=== PATIENT | female | born 1980 | race African-American/Black ===

== ENCOUNTER → 2020-01-12 12:23 | Outpatient (CLI) | payer OTHER, SELFPAY ==
--- NOTE | ~2020-01-12 | US_ITS ---
EXAMINATION: US thyroid EXAM DATE: 01/12/2020 12:43 INDICATION: Follow-up thyroid nodule. TECHNIQUE: Multiple grayscale and Doppler images of the thyroid were obtained (by a technologist who performed the scan) and subsequently reviewed. Individual nodules and recommendations may be reporte d in accordance with TI-RADS system as designated by the 2017 ACR White Paper TI-RADS committee. The re is no prior study for comparison at our institution FINDINGS: Right thyroid lobe measures 5.4 x 2.3 x 1.7 cm, the left measuring 4.8 x 1.9 x 1.7 cm. Mildly heterog eneous thyroid echogenicity with expected amount of vascularity. These dimensions are mildly enlarged . In the left side of the isthmus there is nodule measuring 6 x 5 x 6 millimeters, solid (2 points), hypoechoic (2 points), wider than tall, smooth margin, without echogenic foci, category TR4 for this nodule. IMPRESSION: 1. Small left thyroid isthmus nodule not likely clinically significant. 2. Mild thyromegaly. Reviewed, dictated and finalized at location B.
== END ==
DX: E05.90 Thyrotoxicosis, unspecified without thyrotoxic crisis or storm (principal); E04.9 Nontoxic goiter, unspecified
CPT/HCPCS: 76536

== ENCOUNTER → 2020-07-01 16:33 | Outpatient (CLI) | payer OTHER, SELFPAY ==
--- NOTE | ~2020-07-01 | XR_ITS ---
EXAMINATION: XR knee LT min 4V DATE: 07/01/2020 16:52 INDICATION: Left knee pain. TECHNIQUE: 4 views of left knee were obtained. COMPARISON: None. FINDINGS: Bone alignment is normal. No fracture. There is mild osteoarthritis of medial and patellofe moral compartments. No knee joint effusion. IMPRESSION: 1. Mild left knee osteoarthritis. Reviewed, dictated and finalized at location A. ETY SAW OPERATOR
== END ==
PROVIDERS: Visit Provider Physician Assistant
DX: M17.12 Unilateral primary osteoarthritis, left knee (principal)
CPT/HCPCS: 73564

== ENCOUNTER 2020-07-22 08:52 | Outpatient (CLI) | payer OTHER, SELFPAY ==
--- NOTE | ~2020-07-22 | MMUS_ITS ---
EXAMINATION: MM diagnostic josé miguel RT w nataliya, US breast RT limited HISTORY: Follow-up for probably benign right breast mass TECHNIQUE: Craniocaudal, mediolateral, and mediolateral oblique 3-D tomosynthesis images of the right breast were performed and synthetic 2-D images were generated. CAD analysis was submitted and interp reted. High resolution limited right breast ultrasound was performed. COMPARISON: 10/21/2019, 09/23/2019 BREAST PARENCHYMAL COMPOSITION: There are scattered areas of fibroglandular density. FINDINGS: MAMMOGRAPHIC FINDINGS: There is a stable 6 mm oval, equal density, circumscribed mass in the posterior third of the lower-ou ter breast at the 8:00 location 13 cm from the nipple. There has been no suspicious interval change. No suspicious calcification or architectural distortion are identified. ULTRASOUND: There is a stable 6 mm x 3 mm oval, circumscribed, parallel, complex cystic and solid mass with no po sterior features or internal vascularity at the 8:00 location 12 cm from the nipple. IMPRESSION: 1. Stable, probably benign right breast mass. 2. Recommend 6 month follow-up right diagnostic mammogram and ultrasound. BI-RADS category 3, probably benign findings. Reviewed, dictated and finalized at location A. IMPRESSION: 1. Stable, probably benign right breast mass. 2. Recommend 6 month follow-up right diagnostic mammogram and ultrasound. BI-RADS category 3, probably benign findings.
== END 2020-07-22 08:53 ==
LOC: MICIMG 08:53
PROVIDERS: Visit Provider Physician Assistant
DX: N63.10 Unspecified lump in the right breast, unspecified quadrant (principal)
CPT/HCPCS: 76642; 77061; 77065; G0279

== ENCOUNTER 2020-08-30 13:50 | Outpatient (CLI) | payer OTHER, SELFPAY ==
--- NOTE | ~2020-08-30 | US_ITS ---
EXAMINATION: US thyroid DATE: 08/30/2020 14:16 INDICATION: Nontoxic goiter. TECHNIQUE: Multiple ultrasound images of the thyroid were obtained. COMPARISON: Ultrasound 01/12/2020 FINDINGS: The right thyroid lobe measures 5.1 x 1.9 x 1.8 cm. The left thyroid lobe measures 5.1 x 1.8 x 1.5 c m. There is normal echotexture and echogenicity throughout the thyroid gland. In the thyroid isthmus , there is a 5 mm solid, hypoechoic, dklel-wdyt-sumt nodule with smooth margin without echogenic foci (TI-RADS TR4). Normal vascular flow is present. IMPRESSION: 1. Stable thyroid nodule, likely not clinically significant. No follow-up is needed. Reviewed, dictated and finalized at location B. IMPRESSION: 1. Stable thyroid nodule, likely not clinically significant. No follow-up is ne eded.
== END 2020-08-30 13:51 | disposition home or self-care (01) ==
PROVIDERS: PCP Physician Assistant; Visit Provider Internal Medicine Endocrinology, Diabetes & Metabolism
DX: E04.9 Nontoxic goiter, unspecified (principal)
CPT/HCPCS: 76536

== ENCOUNTER 2020-09-24 07:52 | Emergency (ER) | payer OTHER, SELFPAY ==
[2020-09-24] VITALS (26 sets, daily range): BP systolic 114–157; BP diastolic 68–94; PULSE 69–87; RESP 10–25; TEMP 36.4; O2SAT 97–100
--- NOTE | ~2020-09-24 | XR_ITS ---
EXAMINATION: XR chest 1V portable EXAM DATE: 09/24/2020 08:26 INDICATION: Facial swelling after bug bite on thumb last night. TECHNIQUE: Portable AP frontal chest x-ray was obtained. There is no prior study for comparison. FINDINGS: The lungs are clear. There are no pleural effusions. Cardiomediastinal silhouette is norm al. There is no pneumothorax suspected. The bones and soft tissues are unremarkable. IMPRESSION: No acute cardiopulmonary findings. Reviewed, dictated and finalized at location A.
--- NOTE | ~2020-09-24 | CT_ITS ---
EXAMINATION: CTA chest PE protocol EXAM DATE: 09/24/2020 09:25 INDICATION: Chest pain, elevated d dimer. TECHNIQUE: Spiral CTA of the chest (pulmonary arteries) was performed with 100 cc Omnipaque 350 intr avenous contrast injection. Images were acquired during the pulmonary arterial phase. Coronal maxi mum intensity projection 3D-reconstructions were created by the technologist on dedicated workstation . Axial, coronal and sagittal reformatted images were reviewed. The dose-length product (DLP) for t his examination was 892.33 mGy-cm. The exposure was tailored according to patient size (auto mA exp osure control), and iterative reconstruction (ASIR) was used as additional dose reduction technique. There is no prior study for comparison. FINDINGS: There are no pulmonary emboli in the 1st through 3rd order (central and interlobar) pulmon rachael arteries. Some loss of attenuation in the segmental pulmonary arteries due to respiratory motion , but no intraluminal filling defects suspected. No thoracic aortic dissection. The lungs are arvin r. There are no pleural or pericardial effusions. Tracheobronchial tree is patent. There is no mediastinal, hilar or axillary lymphadenopathy. There is no pneumothorax. Heart normal in size. No evidence of coronary arterial calcification. Upper abdomen is unremarkable. There is thoracic spondylosis without osteoblastic or osteolytic lesions identified. IMPRESSION: No pulmonary emboli or acute findings. Reviewed, dictated and finalized at location A.
--- NOTE | 2020-09-24 08:08 | ECG_ITS ---
Measurements Intervals [place] Rate: 79 P: 70 NM: 146 QRS: 0 QRSD: 93 T: 1 QT: 378 QTc: 435 Interpretive Statements SINUS RHYTHM POSSIBLE LEFT VENTRICULAR HYPERTROPHY BORDERLINE T WAVE ABNORMALITY- INFERIOR LEADS BASELINE ARTIFACT- I, III, AVR, AVL BORDERLINE ECG Electronically Signed On 09-24-2020 9:59:24 CDT by Miguel Keen D.O.
--- NOTE | 2020-09-24 08:16 | ED.SKABFB ---
HPI - Skin/Abscess/Foreign Bdy General Chief complaint: Skin/Abscess/Foreign Body Stated complaint: bite/hives Time Seen by Provider: 09/24/20 07:58 Source: patient and RN notes reviewed Mode of arrival: ambulatory Limitations: no limitations History of Present Illness HPI narrative: This is a 40 year old female who presents for evaluation of an allergic reaction. She states last night she felt something bite her on her right thumb. Afterwards she developed hives and chest pain. She took benadryl last night and her symptoms improved. She woke up this morning with hives again, chest pain and right upper lip swelling. She denies sorethroat or hoarseness. She reports nonradiating midsternal chest pain. She denies cough or chills. She reports an allergy to bees. She is unsure if she developed hives with bee stings. She reports 1 week ago she started fertility pills. Related Data Home Medications Medication Instructions Recorded Confirmed cholecalciferol (vitamin D3) 10 10 mcg PO DAILY 05/24/20 08/15/20 mcg (400 unit) capsule coenzyme Q10 10 mg capsule 10 mg PO ONCE 05/24/20 08/15/20 levocetirizine 5 mg tablet 5 mg PO DAILY 05/24/20 08/15/20 Allergies Allergy/AdvReac Type Severity Reaction Status Date / Time Penicillins Allergy Unknown vomitting,h Verified 09/24/20 09:11 ngoc cefaclor [From Ceclor] AdvReac Severe Swelling Verified 09/24/20 09:11 of Lip/Tongue/Throat,hives Review of Systems Review of Systems: All systems reviewed & are unremarkable except as noted in HPI and below PMFSH Past Medical History Medical History Back pain Thyroid disease Ulcers of both great toes Surgical History Surgical History History of cryosurgery History of tonsillectomy Family History Family History Other Asthma Back pain COPD (chronic obstructive pulmonary disease) Cerebrovascular accident Diabetes mellitus Fibromyalgia H/O: HTN (hypertension) Heart disease IBS (irritable bowel syndrome) Thyroid disease Social History Social History (Updated 07/26/20 @ 15:34 by Rupali Maloney, RT(R)) Smoking status: Never smoker Second hand tobacco smoke exposure: No Alcohol intake: current Substance use: never Substance use type: does not use Gender identity (if verbalized by the patient): Female Exam Const: General: no acute distress and alert Orientation/consciousness: patient oriented x3 HENMT: Mouth: Yes moist mucous membranes Teeth and gingiva: dentition normal Throat: uvula midline Other: mild right upper lip swelling Eyes: EOM: EOMs intact bilaterally Resp: Effort & Inspection: normal respiratory effort and no retractions Auscultation: clear to auscultation bilaterally Cardio: Rate: regular rate Rhythm: regular rhythm GI: GI Palp: No Soft to palpation, No Tenderness to palpation present (GI) and No Guarding due to palpation present (GI) Auscultation: normal bowel sounds Skin: Other: right forearm hives Neuro: General: patient oriented x3, moves all extremities and CN's II-XI intact bilaterally Course Reevaluation(s) Reevaluation #1: Patient appears to have resolution in hives. Lip swelling has improved. She is no distress. I discussed discharge plan. Date: 09/24/20 Time: 11:11 Vital Signs Vital signs: Vital Signs Temperature 97.5 F L 09/24/20 08:08 Pulse Rate 83 09/24/20 08:08 Respiratory Rate 16 09/24/20 08:08 Blood Pressure 135/94 H 09/24/20 08:08 Pulse Oximetry 97 09/24/20 08:08 Temperature 97.5 F L 09/24/20 08:08 Pulse Rate 87 09/24/20 11:50 Respiratory Rate 18 09/24/20 11:50 Blood Pressure 117/68 09/24/20 11:50 Pulse Oximetry 100 09/24/20 11:50 MDM - Skin/Abscess/Foreign Bdy Lab Data Attestation: I reviewed the patient's l
[2020-09-24] MEDS: methylPREDNISolone SOD SUCC 125 MG VIAL IV PUSH (08:21)
[2020-09-24] MEDS: diphenhydrAMINE HCl INJ 50 MG/ML VIAL IV PUSH (08:21)
[2020-09-24] MEDS: FAMOTIDINE 20 MG/2 ML VIAL IV PUSH (08:21)
[2020-09-24 08:24] LABS: Eosinophils Absolute Auto 0.1 K/mm3 (0-0.3); Eosinophils Percent Auto 0.7 % (0-4.4); Hematocrit 41.5 % (37.0-47.0); Hemoglobin 12.9 g/dL (12.0-15.0); Immature Granulocyte Absolute 0.02 K/mm3 (0.00-0.031); Immature Granulocyte Percent A 0.3 % (0-0.5); Lymphocytes Absolute Auto 2.42 K/mm3 (0.9-3.2); Lymphocytes Percent Auto 33.8 % (18.3-44.2); Mean Corpuscular HGB Conc 31.1 g/dl (32-36); Mean Corpuscular Hemoglobin 24.2 pg (26-34); Mean Platelet Volume 10.6 fl (7.4-10.4); Monocytes Absolute Auto 0.4 K/mm3 (0.1-0.6); Monocytes Percent Auto 5.6 % (2.6-8.5); Neutrophils Absolute Auto 4.3 K/mm3 (1.3-6.7); Neutrophils Percent Auto 59.6 % (45.5-73.1); Platelet Count Result 369 k/mm3 (150-375); Red Blood Count 5.32 M/mm3 (4.2-5.4); Red Cell Distribution Width 17.6 % (11.5-14.5); White Blood Count 7.2 K/mm3 (4.5-10.0)
[2020-09-24 08:34] LABS: INR 0.9; Prothrombin Time 12.7 Seconds (11.1-14.7)
[2020-09-24 08:35] LABS: Partial Thromboplastin Time 28.6 SECONDS (22.3-36.8)
[2020-09-24 08:37] LABS: D Dimer 1.62 ug/mL (<0.48)
[2020-09-24 08:39] LABS: Alanine Aminotransferase 15 U/L (4-35); Albumin Level 3.6 g/dL (3.5-5.1); Alkaline Phosphatase 38 U/L (38-126); Anion Gap 8 mmol/L (8-16); Aspartate Amino Transferase 28 U/L (14-36); Bilirubin,Total 0.8 mg/dL (0.2-1.3); Blood Urea Nitrogen 9 mg/dL (7-17); Calcium 8.9 mg/dL (8.4-10.2); Carbon Dioxide 23 mmol/L (22-30); Chloride 106 mmol/L (98-107); Estimated CRCL calculation 154 ml/min; Estimated Glomerular Filt Rate > 60; Glucose 98 mg/dL (65-105); Potassium 4.3 mmol/L (3.4-5.0); Sodium 137 mmol/L (137-145)
[2020-09-24 08:46] LABS: Troponin I < 0.012 ng/mL (0.000-0.034)
[2020-09-24] MEDS: EPINEPHrine HCL INJ 1 MG/ML AMPUL 0.3 MG IM (10:03)
== END 2020-09-24 11:53 | disposition home or self-care (01) ==
PROVIDERS: Emergency Provider General Practice; PCP Physician Assistant
DX: T78.3XXA Angioneurotic edema, initial encounter (principal); R07.9 Chest pain, unspecified; E07.9 Disorder of thyroid, unspecified; R94.31 Abnormal electrocardiogram [ECG] [EKG]
CPT/HCPCS: 36415; 71045; 71275; 80053; 81025; 84484; 85025; 85380; 85610; 85730; 93005; 96372; 96374; 96375; 99284; J0171; J1200; J2930; Q9967

== ENCOUNTER 2022-02-05 09:26 | Outpatient (CLI) | payer OTHER, SELFPAY ==
[2022-02-05 11:10] LABS: Hematocrit 35.1 % (37.0-47.0); Hemoglobin 11.3 g/dL (12.0-15.0)
[2022-02-05 11:21] LABS: Glucose 1 Hour PP 50gm Dose 74 mg/dL
[2022-02-05 12:00] LABS: HIV 1/2 Ab P24 Ag Result Negative (Negative)
== END 2022-02-05 09:27 | disposition home or self-care (01) ==
LOC: ANHLAB 09:30
PROVIDERS: Visit Provider Advanced Practice Midwife
DX: O36.0130 Maternal care for anti-D [Rh] antibodies, third trimester, not applicable or unspecified (principal); Z36.89 Encounter for other specified antenatal screening; Z3A.00 Weeks of gestation of pregnancy not specified
CPT/HCPCS: 36415; 82947; 85014; 85018; 86703; 86850; 86900; 86901; G0432

== ENCOUNTER 2022-03-30 13:21 | Emergency (ER) | payer OTHER, SELFPAY ==
[2022-03-30 13:23] VITALS: BP 148/92; PULSE 94; RESP 16; TEMP 36.2; O2SAT 100
[2022-03-30 16:54] LABS: Influenza A QL RT-PCR Negative (Negative); Influenza B QL RT-PCR Negative (Negative); RSV RNA, RT-PCR Negative (Negative); SARS-CoV-2 RNA PCR Positive
--- NOTE | 2022-03-30 17:06 | ED.URI ---
HPI - URI/Sore Throat General Chief Complaint: Upper Respiratory Infection Stated Complaint: cough, headache Time Seen by Provider: 03/30/22 15:53 History of Present Illness HPI Narrative: 41-year-old female who is 8 months presents to the emergency room for evaluation of a headache and a cough. Patient states symptoms began yesterday. Patient also reports she has been around her mother who was just tested positive for COVID. Patient states that she has been taking Coricidin with no relief of her symptoms. Denies fever, shortness of breath, difficulty breathing chest pain. Denies any abdominal pain vaginal bleeding. Patient does report frequent movements multiple times throughout the hour. Related Data Home Medications Medication Instructions Recorded Confirmed cholecalciferol (vitamin D3) 10 10 mcg PO DAILY 05/24/20 12/06/21 mcg (400 unit) capsule prenat.vits,mana,zhb-yolb-gshxg 1 tablet PO DAILY 06/06/21 12/06/21 aspirin 81 mg chewable tablet 162 mg PO DAILY 12/06/21 12/06/21 Allergies Allergy/AdvReac Type Severity Reaction Status Date / Time Penicillins Allergy Unknown vomitting,h Verified 12/06/21 14:32 ngoc cefaclor [From [facility]] AdvReac Severe Swelling Verified 12/06/21 14:32 of Lip/Tongue/Throat,hives Review of Systems Review of Systems: CONSTITUTIONAL: Denies fever, chills, or sweats. EYES: Denies visual changes, redness, or discharge. ENT: Denies rhinorrhea, congestion, sore throat, or otalgia. CARDIOVASCULAR: Denies chest pain, palpitations, or edema. RESPIRATORY: Reports cough GASTROINTESTINAL: Denies abdominal pain, nausea, vomiting, or diarrhea. GENITOURINARY: Denies dysuria or hematuria. SKIN: Denies rash or itching. MUSCULOSKELETAL: Denies back pain, joint pain, or myalgia. NEUROLOGIC: Reports headache PSYCHIATRIC: Denies anxiety or depression. [facility] Past Medical History Medical History Back pain Thyroid disease Ulcers of both great toes Surgical History Surgical History History of cryosurgery History of tonsillectomy Family History Family History Other Asthma Back pain COPD (chronic obstructive pulmonary disease) Cerebrovascular accident Diabetes mellitus Fibromyalgia H/O: HTN (hypertension) Heart disease IBS (irritable bowel syndrome) Thyroid disease Social History Social History Smoking status: Never smoker Second hand tobacco smoke exposure: No Alcohol intake: current Substance use: never Substance use type: does not use Gender identity (if verbalized by the patient): Female Exam Narrative: GENERAL: Well-appearing, well-nourished, no physical limitations, and in no acute distress. HEAD: Normocephalic, atraumatic. EYES: Conjunctivae normal, PERRLA and EOMI. ENT: External nose normal, Nares clear, no rhinorrhea or epistaxis. Mucous membranes moist. Oropharynx without tonsillar hypertrophy exudate or other lesions. External ears normal, bilateral TMs normal bilaterally NECK: Supple. No adenopathy or masses. CHEST: Clear to auscultation. No respiratory distress. No wheezes rales or rhonchi. HEART: Regular rate and rhythm. No murmur heard. Normal peripheral pulses. ABDOMEN: Soft, nontender, nondistended, normal active bowel sounds. Parous abdomen BACK: No CVA tenderness; No cervical/thoracic/lumbar tenderness, step-offs, bony abnormality; FROM EXTREMITIES: Normal range of motion. No edema. No clubbing or cyanosis SKIN: Warm, dry, no rash. No noted wounds NEURO: No focal deficits. Alert and oriented x3. MAEW. CN's II-XI intact bilaterally, normal gait PSYCH: Cooperative. Normal mood and affect. Course Vital Signs Vital signs: Vital Signs Temperature 36.2 C L 03/30/22 13:23 Pulse Rate 94 12
== END 2022-03-30 17:21 | disposition home or self-care (01) ==
PROVIDERS: Emergency Medicine; Emergency Provider Nurse Practitioner Family
DX: O98.513 Other viral diseases complicating pregnancy, third trimester (principal); U07.1 COVID-19; O99.283 Endocrine, nutritional and metabolic diseases complicating pregnancy, third trimester; E07.9 Disorder of thyroid, unspecified; Z3A.00 Weeks of gestation of pregnancy not specified
CPT/HCPCS: 87637; 99283

== ENCOUNTER 2022-04-29 13:21 | Inpatient (IN) | payer OTHER, SELFPAY ==
[2022-04-29] VITALS (13 sets, daily range): BP systolic 120–160; BP diastolic 51–100; PULSE 79–145; BMI 38.5
[2022-04-29 15:17] LABS: Add Urine Microscopic? NO; Appearance Urine Slightly Cloudy (Clear); Basophils Percent Auto 0.3 % (0.2-1.2); Bilirubin Urine Negative (Negative); Blood Urine Negative (Negative); Color Urine Yellow (Yellow); Eosinophils Absolute Auto 0.2 K/mm3 (0-0.3); Eosinophils Percent Auto 1.7 % (0-4.4); Glucose Urine UA Negative (Negative); Hematocrit 38.9 % (37.0-47.0); Hemoglobin 12.5 g/dL (12.0-15.0); Immature Granulocyte Percent A 1.1 % (0-0.5); Ketones Urine Negative (Negative); Leukocyte Esterase Ur Negative LEU/UL (NEGATIVE); Lymphocytes Absolute Auto 2.14 K/mm3 (0.9-3.2); Lymphocytes Percent Auto 24.6 % (18.3-44.2); Mean Corpuscular HGB Conc 32.1 g/dl (32-36); Mean Corpuscular Hemoglobin 27.8 pg (26-34); Mean Corpuscular Volume 86.4 fl (80-100); Mean Platelet Volume 10.7 fl (7.4-10.4); Monocytes Absolute Auto 0.6 K/mm3 (0.1-0.6); Neutrophils Absolute Auto 5.7 K/mm3 (1.3-6.7); Neutrophils Percent Auto 65.3 % (45.5-73.1); Nitrate Urine Negative (Negative); Platelet Count Result 258 k/mm3 (150-375); Protein Urine Negative (Negative); Red Cell Distribution Width 15.1 % (11.5-14.5); Specific Grav Ur 1.015 (1.001-1.035); Urobilinogen Urine 0.2 mg/dL (<2.0); White Blood Count 8.7 K/mm3 (4.5-10.0)
[2022-04-29 15:24] LABS: Bacteria Urine Trace /hpf; Mucus Urine Rare /lpf; RBC Urine 0-2 /hpf (0-2); WBC Urine 0-3 /hpf (0-3)
[2022-04-29 15:26] LABS: Creatinine Urine 141.7 mg/dL; Total Protein Urine Random 9 mg/dL; Ur Ttl Prot Creatinine Ratio 0.06 mg/mg (0-0.20)
[2022-04-29 15:27] LABS: Alanine Aminotransferase 16 U/L (6-35); Albumin Level 3.1 g/dL (3.5-5.1); Alkaline Phosphatase 168 U/L (38-126); Anion Gap 5 mmol/L (8-16); Aspartate Amino Transferase 21 U/L (14-36); Bilirubin,Total 0.4 mg/dL (0.2-1.3); Blood Urea Nitrogen 6 mg/dL (7-17); Calcium 8.4 mg/dL (8.4-10.2); Carbon Dioxide 20 mmol/L (22-30); Chloride 107 mmol/L (98-107); Estimated Glomerular Filt Rate > 60; Glucose 91 mg/dL (65-110); Potassium 3.6 mmol/L (3.4-5.0); Sodium 132 mmol/L (137-145); Uric Acid 6.6 mg/dL (2.5-7.5)
[2022-04-29] MEDS: DINOPROSTONE 10 MG VAG INSERT VAGINAL (16:11)
--- NOTE | 2022-04-29 16:18 | LDADM ---
This patient, Javier Garcia, was admitted to Labor/Delivery/Recovery 106 on 04/29/22 at 13:21. Plans for labor, pain management and were discussed with patient. Patient/family oriented to hospital policies and general routines including ID bracelet, bed and alarms, visiting hours, pain management, procedures, bathroom and other care routines, personal items, smoking policy, room service/diet and guest tray routines, security routines, and visiting hours. Patient/Family are encouraged to report perceived risks to care and to ask questions if they do not understand what they are told or what they should do. See OBIX for further documentation.
--- NOTE | 2022-04-29 17:21 | WPDANESEPP ---
Anes - Eval Pre Procedure Procedure: Labor epidural Date/Time: 04/29/22 17:21 Pre Op Diagnosis: Contractions Patient Data Age: 41 Gender: F Height: 1.78 m Weight: 122 kg Last Vital Signs Pulse 79 04/29/22 16:33 BP 153/93 H 04/29/22 16:33 O2 Del Method Room Air 04/29/22 16:16 Allergies Allergy/AdvReac Type Severity Reaction Status Date / Time Penicillins Allergy Unknown vomitting,h Verified 04/29/22 16:26 ngoc cefaclor [From [facility]] AdvReac Severe Swelling Verified 04/29/22 16:26 of Lip/Tongue/Throat,hives Home Medications Medication Instructions Recorded Confirmed Type aspirin 81 mg chewable tablet 162 mg PO DAILY 12/06/21 04/29/22 History prenat.vits,mana,mzh-hlpy-aepzs 1 tablet PO DAILY 04/06/22 04/29/22 History Laboratory Tests 04/29/22 04/29/22 04/29/22 14:58 14:58 14:58 WBC 8.7 K/mm3 K/mm3 (4.5-10.0) RBC 4.50 M/mm3 M/mm3 (4.2-5.4) Hgb 12.5 g/dL g/dL (12.0-15.0) Hct 38.9 % % (37.0-47.0) MCV 86.4 fl fl (80-100) MCH 27.8 pg pg (26-34) MCHC 32.1 g/dl g/dl (32-36) RDW 15.1 % H % (11.5-14.5) Plt Count 258 k/mm3 k/mm3 (150-375) MPV 10.7 fl H fl (7.4-10.4) Immature Gran % (Auto) 1.1 % H % (0-0.5) Neut % (Auto) 65.3 % % (45.5-73.1) Lymph % (Auto) 24.6 % % (18.3-44.2) [place] % (Auto) 7.0 % % (2.6-8.5) Eos % (Auto) 1.7 % % (0-4.4) Baso % (Auto) 0.3 % % (0.2-1.2) Lymph # (Auto) 2.14 K/mm3 K/mm3 (0.9-3.2) [place] # (Auto) 0.6 K/mm3 K/mm3 (0.1-0.6) Eos # (Auto) 0.2 K/mm3 K/mm3 (0-0.3) Baso # (Auto) 0.0 K/mm3 K/mm3 (0.0-0.1) Abs Immat Gran (auto) 0.10 K/mm3 H K/mm3 (0.00-0.031) Absolute Neuts (auto) 5.7 K/mm3 K/mm3 (1.3-6.7) Absolute Nucleated RBC 0.0 K/mm3 K/mm3 (0.0-0.012) Nucleated RBC % 0.0 % % (0.0-0.2) Sodium 132 mmol/L L mmol/L (137-145) Potassium 3.6 mmol/L mmol/L (3.4-5.0) Chloride 107 mmol/L mmol/L (98-107) Carbon Dioxide 20 mmol/L L mmol/L (22-30) Anion Gap 5 mmol/L L mmol/L (8-16) BUN 6 mg/dL L mg/dL (7-17) Creatinine 0.50 mg/dL L mg/dL (0.7-1.0) Estim Creat Clear Calc Not Reportable Estimated GFR > 60 (59 - ) Glucose 91 mg/dL mg/dL (65-110) Uric Acid 6.6 mg/dL mg/dL (2.5-7.5) Calcium 8.4 mg/dL mg/dL (8.4-10.2) Total Bilirubin 0.4 mg/dL mg/dL (0.2-1.3) AST 21 U/L U/L (14-36) ALT 16 U/L U/L (6-35) Alkaline Phosphatase 168 U/L H U/L (38-126) Total Protein 6.0 g/dL L g/dL (6.3-8.2) Albumin 3.1 g/dL L g/dL (3.5-5.1) Urine Color Yellow (Yellow) Urine Appearance Slightly cloudy (Clear) Urine pH 7.0 (5.0-9.0) Ur Specific [place] 1.015 (1.001-1.035) Urine Protein Negative mg/dL mg/dL (Negative) Urine Glucose (UA) Negative mg/dL mg/dL (Negative) Urine Ketones Negative mg/dL mg/dL (Negative) Ur Blood (Man) Negative (Negative) Urine Nitrate Negative (Negative) Urine Bilirubin Negative (Negative) Urine Urobilinogen 0.2 mg/dL mg/dL (<2.0) Ur Leukocyte Esterase Negative SHERICE/UL SHERICE/UL (NEGATIVE) Urine RBC 0-2 /hpf /hpf (0-2) Urine WBC 0-3 /hpf /hpf (0-3) Urine Bacteria Trace /hpf /hpf Urine Mucus Rare /lpf /lpf U Random Total Protein Urine Creatinine Protein/Creat Ratio 2 RPR 04/29/22 04/29/22 15:01 15:50 WBC RBC Hgb Hct MCV MCH MCHC RDW Plt Count MPV Immatu
[2022-04-30] VITALS (43 sets, daily range): BP systolic 118–163; BP diastolic 59–98; PULSE 62–152; RESP 16–18; TEMP 36.3–36.6; O2SAT 91–100
[2022-04-30] MEDS: OXYTOCIN 30 UNITS/NS 500 ML 30 UNITS/500 ML BAG 6 UNITS IV CONT (05:37)
[2022-04-30] MEDS: LACTATED RINGERS 1,000 ML 125 ML IV CONT ×2 (05:38→13:26)
--- NOTE | 2022-04-30 09:17 | WPDHPUPDATE1 ---
History and Physical Update Update Date/Time: 04/30/22 09:17 41-year-old 1 at 39 weeks gestation presented for loss of fluid. Her membranes were intact but she had some abnormal heart tones. She was induced. Started with Cervidil. After 12 hours of Cervidil Pitocin was started. Artificial rupture of membranes was performed at this time. Clear fluid. /-3 reassuring status. Expected management History and Physical has been reviewed, including an updated exam of the patient. There are NO changes in the patient's condition. Risks, benefits, and alternatives have been discussed and questions answered. Patient agrees to proceed with procedure.
[2022-04-30 09:21] LABS: Rapid Plasma Reagin Non-Reactive (NonReactive)
[2022-04-30] MEDS: ONDANSETRON INJ 4 MG/2 ML VIAL IV PUSH (12:20)
[2022-04-30] MEDS: fentaNYL CITRATE INJ (*CRX) 100 MCG/2 ML VIAL IV PUSH (13:23)
[2022-04-30] MEDS: OXYTOCIN 30 UNITS/NS 500 ML 30 UNITS/500 ML BAG 125 UNITS IV CONT (15:25)
--- NOTE | 2022-04-30 15:33 | PM.OBPRVD ---
OB - Delivery Note Procedure Delivery date: 04/30/22 Procedure: with repair of length the second-degree laceration up to the sulcus. Induction method: AROM, Per Pitocin Protocol and Per Cervidil Protocol Delivery monitor: Internal FHT and Internal Uterine Route of delivery: Episiotomy description: None Laceration Description: Perineal - 2nd Degree ( Extending up near the sulcus of the vagina) Delivery repair: vicryl Quantitative Blood Loss (ml): 450 Anesthesia type: None Disposition: Floor Baby Date of : 04/30/22 Time of : 15:00 Weeks of gestation at delivery: 39 Weight (pounds): 6 Weight (ounces): 11 presentation: vertex position: Left Occiput Anterior Placenta delivery description: Spontaneous Cord Vessel Description: 3 Vessels score one minute: 8 score five minutes: 9
[2022-04-30] MEDS: BENZOCAINE 20% AER SPR (*SP) 56 GM CAN 1 SPRAY TOPICAL (17:19)
[2022-04-30] MEDS: WITCH HAZEL 40 PADS 1 PAD TOPICAL (17:19)
--- NOTE | 2022-04-30 17:41 | PC.NURSE ---
Patient transferred to post room #280 via wheelchair. Support person present. Oriented to unit, room, information board, rooming in, admission packet and security measures. Patient verbalizes understanding.
[2022-04-30] MEDS: IBUPROFEN 600 MG TABLET PO (17:51)
[2022-05-01 03:37] VITALS: BP 133/76; PULSE 79; RESP 16; TEMP 36.4
[2022-05-01 04:36] LABS: Hemoglobin 9.9 g/dL (12.0-15.0)
[2022-05-01 07:45] VITALS: BP 122/79; PULSE 85; RESP 16; TEMP 36.6; O2SAT 100
[2022-05-01] MEDS: DOCUSATE SODIUM 100 MG CAPSULE PO ×2 (08:17→17:33)
[2022-05-01] MEDS: IBUPROFEN 600 MG TABLET PO ×2 (08:17→17:37)
[2022-05-01] MEDS: MULTIVIT/MIN/PREN/FOL AC/IRON TABLET 1 TAB PO (08:17)
[2022-05-01] MEDS: POLYSACCHARIDE IRON COMPLEX 150 MG CAPSULE PO ×2 (08:17→17:33)
--- NOTE | 2022-05-01 08:25 | PM.OBPNVD ---
OB - PN: Subj Subjective Date/time seen: 05/01/22 08:25 Patient comments: no complaints, pain well controlled, incisional pain, tolerating diet and flatus present OB - PN: Obj Data Labs 05/01/22 03:19 04/29/22 14:58 Labs: Laboratory Results - last 24 hr 04/29/22 05/01/22 15:50 03:19 Hgb 9.9 L Hct 31.0 L RPR Non-reactive OB - PN A/P Plan day: 1 Plan: routine care Comments: No problems, routine care Time Spent With Patient Time: Total time spent is greater than 50% in coordination of care (as documented) at patient's floor/unit and/or counseling patient: Exam Const: General: comfortable, no acute distress and alert Resp: Effort & Inspection: normal respiratory effort Auscultation: no crackles, no rales and no rhonchi Cardio: Rate: regular rate Heart sounds: no click, no murmurs and no rubs GI: Inspection: non-distended GI Palp: No Tenderness to palpation present (GI) Auscultation: normal bowel sounds Other: Incision - CDI Extrem: General: normal to inspection, no pedal edema and no calf tenderness
--- NOTE | 2022-05-01 09:28 | PC.NURSE ---
[id number] Introductions were made by request, then consulted with patient to assess needs related to . Mother led the conversation with her?plans to feed?her , questions and the?experience so far. Mother is demonstrating effectively her on the right breast using football positioning, recognizes effective rocking motion of the infants jaw, swallowing is visualized and heard. Reviewed and discussed how to watch for adequate intake and output, risks with hypothyroidism, milk production with supply and demand, risks of using a pacifier, benefits of practicing optimal latching with on demand aiming for 8-12 times in a 24 hour period and at times there may be cluster feedings. Mother denies any pain with and when infant self detached the nipple was not misshaped. Mother is feeding appropriately for growth of infant and understands stimulating to eat if needed. Infant has had appropriate feedings in the last 18 hours meets the outcomes for weight, output and jaundice at this time. Mother states she is confident to continue effectively her . Reinforced understanding of milk production, transition of milk, signs of adequate intake, transition of stool, prevention/relief of engorgement, responsive watching for feeding cues, the different methods of stimulating infant to breastfeed 2-3 hours after the start of the last feeding, community resources, medication information reviewed per [facility] and when to call a provider using the resource of the mom and baby guide. Parents voiced understanding of the education shared. Reported to the primary RN.
[2022-05-01 12:08] VITALS: BP 111/57; PULSE 85; RESP 16; TEMP 37.6; O2SAT 100
[2022-05-02] VITALS: BP 119/63; PULSE 74; RESP 16; TEMP 36.9
[2022-05-02] MEDS: IBUPROFEN 600 MG TABLET PO ×2 (05:21→13:30)
--- NOTE | 2022-05-02 07:42 | PM.OBPNVD ---
OB - PN: Subj Subjective Date/time seen: 05/02/22 07:42 s/p vaginal delivery day 2 OB - PN: Obj Data Labs 05/01/22 03:19 04/29/22 14:58 OB - PN A/P Plan day: 2 Time Spent With Patient Time: Total time spent is greater than 50% in coordination of care (as documented) at patient's floor/unit and/or counseling patient: Review of Systems Review of Systems: All systems reviewed & are unremarkable except as noted in HPI and below Exam Const: General: cooperative, healthy appearing and comfortable
--- NOTE | 2022-05-02 07:45 | PM.OBDSVD ---
DS: Admitting Diagnosis Discharge Date 05/02/22 Admitting Diagnosis IOL DS: Discharge Diagnosis Discharge Diagnosis (1) Vaginal delivery: Code(s): O80 - Encounter for full-term uncomplicated delivery Status: Acute OB - DS: Summary OB Procedures : None OB Procedures Intrapartum: Spontaneous Vag Delivery OB Procedures: : None Time Spent with Patient Time attestation: Total time spent providing and/or coordinating discharge services: Discharge Plan Discharge Attending physician on discharge: Mandie Smart Discharging Clinician: Mallika Paulson Patient Disposition: Home, Self-Care Activity: pelvic rest Diet: regular Patient Instructions: Antibiotic Form Stand Alone Forms: General Discharge Information Follow-up/Referrals: Mandie Smart MD [Physician] - 4 Weeks Discharge Medications: New ibuprofen 600 mg Tablet 600 mg PO Q6H PRN (Reason: Cramping) Qty: 30 0RF Continued #2 Tablet 1 tablet PO DAILY Discontinued aspirin 81 mg tablet,chewable 162 mg PO DAILY Date of admission: 04/29/22 13:21 Primary Care Provider: PHYSICIAN NOT ON STAFF,NONSTAFF Admitting Provider: Mandie Smart Attending physician on admission: Mandie Smart Condition: Stable
--- NOTE | 2022-05-02 08:00 | PC.NURSE ---
Pt introductions made and plan of care discussed per post , pain management, breast feeding, daily care activities and pending discharge to home. PT received instructions per one to one discussion, mom baby care guide and demonstrations this shift. PT and spouse both recipients of such instructions and no barriers to learning identified at this time. PT verbalized understanding of such care.
[2022-05-02 08:30] VITALS: BP 122/76; PULSE 84; RESP 18; TEMP 37.4; O2SAT 100
[2022-05-02] MEDS: ACETAMINOPHEN 325 MG TABLET 650 MG PO (10:23)
[2022-05-02] MEDS: DOCUSATE SODIUM 100 MG CAPSULE PO (10:24)
[2022-05-02] MEDS: MULTIVIT/MIN/PREN/FOL AC/IRON TABLET 1 TAB PO (10:24)
[2022-05-02] MEDS: POLYSACCHARIDE IRON COMPLEX 150 MG CAPSULE PO (10:24)
--- NOTE | 2022-05-02 10:26 | PC.NURSE ---
[id number] Infant is not in the room with parents. Mother voiced had gone for a circumcision. Reviewed signs of adequate intake/output with the pie demonstration. Parents are concerned with the lack of a stool diaper since 05/01 414. Discussed AMA, hypothyroidism and milk production. Mother is interested in a consult to assess infant swallowing at the breast. [id number] - RN brought infant to the room after being assessed post circumcision. Skin to skin was encouraged, reviewed stimulating for wakefulness and mother will call when infant begins to squirm and showing feeding cues. 1023 - Consulted to check on progress of waking infant. Infant is not in the room. Mother states is being assessed by the Jinrikisha Driver in the nursery.
[2022-05-02] MEDS: LANOLIN (LANSINOH) 7.5 GM CREAM 1 APPLIC TOPICAL (10:27)
[2022-05-02 10:30] VITALS: PULSE 84; RESP 18; O2SAT 100
--- NOTE | 2022-05-02 13:00 | PC.NURSE ---
Pt received discharge instructions per protocol and verbalized understanding of such care.
--- NOTE | 2022-05-02 13:29 | PC.NURSE ---
[phone] Consulted with patient to assess needs related to . Mother led conversation with her experience with feeding baby so far. Mother works well with her infant with encouragement. Reviewed working with , supporting breast and how to protect the nipples with an optimal deep latch, good positioning, and good hand washing. Reviewed positioning and alignment, supporting breast, off-centered (asymmetrical latch) and leading with the chin with big, open, wide gape. latched optimally to the right breast in football position. Education given to mother of how to visualize suck/swallow ratios and listen for drinking at the breast. Infant was able to maintain latch without discomfort to mother. Nipple care reviewed with optimal latch, good positioning and using clean hands when feeding her and touching her breast. Mother states her ability to independently latch optimally without discomfort is going well. Mother is feeding appropriately for growth of infant and understands stimulating infant to eat if needed. Infant has had appropriate feedings in the last 24 hours meets the outcomes for weight, output and jaundice at this time. Mother states she is confident to continue effectively her at home, when to call for assistance and denies any additional assistance or education at this time. Reinforced understanding of milk production, transition of milk, signs of adequate intake, transition of stool, prevention/relief of engorgement, responsive watching for feeding cues, the different methods of stimulating infant to breastfeed 2-3 hours after the start of the last feeding, community resources, medication information reviewed per [facility] and when to call a provider using the resource of the mom and baby guide/[facility] website. Mother voiced understanding of the education shared. Reported to the primary RN.
--- NOTE | 2022-05-02 13:56 | PC.NURSE ---
PT discharged to home ambulatory accompanied by spouse, mother and and taken to waiting car. follow up appts confirmed
[2022-05-03 10:16] VITALS: BP 138/81; PULSE 78; RESP 18; TEMP 37.4; O2SAT 100
== END 2022-05-02 13:56 | disposition home or self-care (01) | DRG 807 ==
LOC: ANHLDR 14:51 → ANHOB2 04-30 18:02
PROVIDERS: Admitting Provider Obstetrics & Gynecology; Visit Provider Obstetrics & Gynecology
DX: O76 Abnormality in fetal heart rate and rhythm complicating labor and delivery (principal); Z37.0 Single live birth; O70.1 Second degree perineal laceration during delivery; O62.3 Precipitate labor; Z3A.39 39 weeks gestation of pregnancy
CPT/HCPCS: 36415; 59025; 80053; 81003; 82570; 84156; 84550; 85014; 85018; 85025; 86592; 86850; 86870; 86880; 86900; 86901; 86905; 86922; 86971; 87086; A9270; J2405; J2590; J3010; J7120

== ENCOUNTER 2022-10-25 14:51 | Outpatient (CLI) | payer OTHER, SELFPAY | END 2022-10-25 14:52 | disposition home or self-care (01) | LOC: ANHLAB 14:53 | PROVIDERS: Visit Provider Advanced Practice Midwife | DX: O20.0 Threatened abortion (principal); Z3A.00 Weeks of gestation of pregnancy not specified | CPT/HCPCS: 36415; 84702 ==

== ENCOUNTER 2022-10-27 10:03 | Outpatient (CLI) | payer OTHER, SELFPAY | END 2022-10-27 10:04 | disposition home or self-care (01) | LOC: ANHLAB 10:07 | PROVIDERS: Visit Provider Advanced Practice Midwife | DX: O20.0 Threatened abortion (principal) | CPT/HCPCS: 36415; 84702 ==

== ENCOUNTER 2023-01-31 19:59 | Emergency (ER) | payer OTHER, SELFPAY ==
--- NOTE | ~2023-01-31 | US_ITS ---
EXAMINATION:US venous doppler LE RT INDICATION:Right lower extremity swelling TECHNIQUE: Multiple grayscale, color flow and Doppler images of the right lower extremity deep venous systems were obtained and reviewed. COMPARISON:No prior studies for comparison. FINDINGS: The common femoral, superficial femoral and popliteal veins demonstrate normal respiratory variation, augmentation and compressibility. Color flow is also seen within the posterior tibial, pe roneal, greater saphenous and profunda veins. IMPRESSION: 1: No lower extremity deep venous thrombosis. Reviewed, dictated and finalized at location A.
[2023-01-31 20:53] VITALS: BP 152/71; PULSE 100; RESP 18; TEMP 36.8; O2SAT 100
--- NOTE | 2023-02-01 01:49 | PC.NURSE ---
Pt c/o pain to right leg from hip to knee. Denies any injury. PMS intact.
[2023-02-01 02:32] VITALS: BP 148/81; PULSE 86; RESP 14; O2SAT 99
--- NOTE | 2023-02-01 04:21 | ED.EXTPRO ---
HPI - Extremity Problem General Chief complaint: Extremity Problem,Nontraumatic Stated complaint: right leg pain Time Seen by Provider: 02/01/23 00:58 Source: patient Mode of arrival: ambulatory Limitations: no limitations History of Present Illness HPI Narrative: 42-year-old female presents today with complaints of right leg pain that started about 1 week ago. Has noticed some swelling to legs and right thigh area. Denies trauma. Has a sedentary job. Denies sob, chest pain, dizziness, lightheadedness, fever, body aches, chills, or erythems. Related Data Home Medications Medication Instructions Recorded Confirmed prenat.vits,mana,[id number]-[id number] 1 tablet PO DAILY 04/06/22 04/29/22 Allergies Allergy/AdvReac Type Severity Reaction Status Date / Time Penicillins Allergy Unknown vomitting,h Verified 04/29/22 16:26 ngoc cefaclor [From Ceclor] AdvReac Severe Swelling Verified 04/29/22 16:26 of Lip/Tongue/Throat,hives Review of Systems Review of Systems: All systems reviewed & are unremarkable except as noted in HPI and below PMFSH Past Medical History Medical History Back pain Thyroid disease Ulcers of both great toes Surgical History Surgical History History of cryosurgery History of tonsillectomy Family History Family History Father Hypertension Mother Hypertension Sibling Hypertension Other Asthma Back pain COPD (chronic obstructive pulmonary disease) Cerebrovascular accident Diabetes mellitus Fibromyalgia H/O: HTN (hypertension) Heart disease IBS (irritable bowel syndrome) Thyroid disease Social History Social History Smoking status: Never smoker Second hand tobacco smoke exposure: No Alcohol intake: current Substance use: never Substance use type: does not use Lack of Transportation: No Lack of Food: Never True Current Housing: I Have Housing Concerned About Future Housing: No Difficulty Paying Gas/Electric Bills: No Difficulty Paying for Meds: No Currently Unemployed: No Education: Master's Degree or Higher Difficulty w/ Childcare or Family Care: No Gender identity (if verbalized by the patient): Female Spiritual care concerns: No Exam Const: General: cooperative, healthy appearing, comfortable, no acute distress and well developed Orientation/consciousness: patient oriented x3 HENMT: Head: normal to inspection Eyes: General: appearance normal, both eyes and all related structures Resp: Effort & Inspection: normal respiratory effort and able to speak in complete sentences Auscultation: clear to auscultation bilaterally Cardio: Rate: regular rate Rhythm: regular rhythm Heart sounds: S1 normal heart sound present and S2 normal heart sound present Neuro: General: patient oriented x3 Extrem: Other: Right leg without erythema, swelling, tenderness, or deformity Course Vital Signs Vital signs: Vital Signs Temperature 98.3 F 01/31/23 20:53 Pulse Rate 100 01/31/23 20:53 Respiratory Rate 18 01/31/23 20:53 Blood Pressure 152/71 H 01/31/23 20:53 Pulse Oximetry 100 01/31/23 20:53 Oxygen Delivery Room Air 01/31/23 20:53 Temperature 98.3 F 01/31/23 20:53 Pulse Rate 86 02/01/23 02:32 Respiratory Rate 14 02/01/23 02:32 Blood Pressure 148/81 H 02/01/23 02:32 Pulse Oximetry 99 02/01/23 02:32 Oxygen Delivery Room Air 01/31/23 20:53 MDM - Extremity (Nontraumatic) MDM Narrative Medical decision making narrative: 42 year old female HPI as noted. US venous doppler to rule out DVT negative. NO trauma so no further imaging needed. No erythema, lacerations, abscesses noted. Discharge home with follow up with primary if symptoms persist. Nati
== END 2023-02-01 02:20 | disposition home or self-care (01) ==
PROVIDERS: Emergency Provider Nurse Practitioner Family
DX: M79.604 Pain in right leg (principal); E07.9 Disorder of thyroid, unspecified
CPT/HCPCS: 93971; 99284

== ENCOUNTER 2023-12-17 10:51 | Outpatient (CLI) | payer OTHER, SELFPAY ==
--- NOTE | ~2023-12-17 | MM_ITS ---
EXAMINATION: MM screening [facility] BI w nataliya HISTORY: Screening TECHNIQUE: Craniocaudal and mediolateral oblique 3-D tomosynthesis images were obtained and synthetic 2-D images were generated. CAD analysis was submitted and interpreted. COMPARISON: Comparison to multiple prior studies sequentially, with oldest reviewed study dated 06/2019. BREAST PARENCHYMAL COMPOSITION: There are scattered areas of fibroglandular density. FINDINGS: There is no evidence of suspicious mass, calcification, or architectural distortion to sugg est malignancy in either breast. There has been no suspicious interval change. IMPRESSION: 1. No mammographic evidence of malignancy. 2. Recommend routine screening mammography in one year. BI-RADS Category 1: Negative Reviewed, dictated and finalized at location B.
== END 2023-12-17 10:52 ==
PROVIDERS: Visit Provider Family Medicine
DX: Z12.31 Encounter for screening mammogram for malignant neoplasm of breast (principal)
CPT/HCPCS: 77063; 77067

== ENCOUNTER 2024-08-26 17:22 | Observation (INO) | payer OTHER, SELFPAY ==
[2024-08-26] VITALS (7 sets, daily range): BP systolic 121–132; BP diastolic 59–71; PULSE 75–85; BMI 41.1
--- OUTSIDE RECORDS SUMMARY | 2024-08-26 17:30 | XMS_ITS | Clinical Summary ---
Author Organization [facility] Address [address] [place] [address] Care Team Providers Care Light Oil Operator Name Role Phone Alexx Wong Primary Care Provider [phone] Musa Bauer MD Unavailable [phone] Ana Almaguer MD Unavailable [phone] Allergies Active Allergy Reactions Criticality Noted Date Comments Cefaclor Stomach upset,Hives High 11/10/2021 Abdominal Pain Penicillins Hives,Itching,Nausea & Vomiting,Stomach upset Medium 11/10/2021 Medications 25/iron fum/folic/dha (-1 ORAL) 08/22/2021 Active aspirin 81 mg enteric coated tablet Take 2 tablets (162 mg total) by mouth daily Active pantoprazole DR (PROTONIX) 20 mg EC tablet Take 1 tablet (20 mg total) by mouth daily 10/27/2018 Active propylthiouraci L (PTU) 50 mg tablet Take 1 tablet (50 mg total) by mouth 3 (three) times a day 01/26/2020 Active Active Problems Problem Noted Date Diagnosed Date Hyperthyroidism 08/07/2023 Surgical History Surgery Date Site/Laterality Comments TONSILLECTOMY AND ADENOIDECTOMY CRYOABLATION Medical History Medical History Date Comments Thyroid disease GERD (gastroesophageal reflux disease) Family History Medical History Relation Name Comments Colon cancer Mother's Sister Relation Name Status Comments Mother's Sister Social History Tobacco Use Types Packs/Day Years Used Date Smoking Tobacco: Never Smokeless Tobacco: Never Tobacco Cessation:Counseling Given: Not Answered AUDIT-C Answer Date Recorded Q1: How often do you have a drink containing alc ohol? Monthly or less 08/07/2023 Average Number of Drinks Not on file Frequency of Binge Drinking Not on file 07/21 Comments Unknown Sex and Gender Information Value Date Recorded Sex Assigned at Not on file Legal Sex Female 5:04 PM CDT Gender Identity Not on file Sexual Orientation Not on file Obstetrics History Last Filed Vital Signs Vital Sign Reading Time Taken Comments Blood Pressure 156/82 08/07/2023 12:44 PM CDT Pulse 65 08/07/2023 12:44 PM CDT Temperature 36.9 C (98.5 F) 01/19/2022 1:59 PM CDT Respiratory Rate 20 01/19/2022 1:59 PM CDT Oxygen Saturation 100% 08/07/2023 12: 44 PM CDT Inhaled Oxygen Concentration - - Weight 106.8 kg (235 lb 6.4 oz) 024 12:44 PM CDT Height 177.8 cm (5' 10 ) 01/19/2022 1:59 PM CDT Body Mass Index 33.78 01/19/2022 1:59 PM CDT Plan of Treatment Health Maintenance Due Date Last Done Comments Breast Cancer Screening-Mammogram 1979 Cervical Cancer Screening 1979 Colon Cancer Screening-Colonoscopy 1979 Depression Screening 1979 Hepatitis C Screening 1979 Varicella Vaccines (1 of 2 - 13+ 2-dose series) 07/26/1992 Hepatitis B Screening 07/26/1997 Regular Well Visit/Exam 18-64 07/26/1997 DTaP/Tdap/Td Vaccine (1 - Tdap) 05/25/2020 Covid-19 Vaccine (2 - 2023-2 5 season) 2023 10/29/2020 Influenza Vaccine (Season Ended) 2024 HPV Vaccines Aged Out No longer eligi ble based on patient's age to complete this topic Pneumococcal vaccine <65 Aged Out No longer eligible based on patient's age to complete this topic Insurance [facility] Address: [address] [place] [address] [facility] Address: [place] [address] Care Teams Light Oil Operator Relationship Specialty Start Date End Date Alexx Wong PA [address] [facility] [address] [address] PCP - General Physician Civil Cad Designer 01/19/22 Musa Bauer MD [address] [facility] [address] [address] Consulting Physician Internal Medicine 07/26/23 Ana Almaguer MD [address] [place] [id number] Radiation Oncologist Radiation Oncology 07/26/23
--- OUTSIDE RECORDS SUMMARY | 2024-08-26 17:30 | XMS_ITS | Clinical Summary ---
Author Organization [facility] Address [address] [place] [address] Care Team Providers Care Wire Mill Operator Name Role Phone Unavailable Primary Care Provider Unavailabl e Source Comments [facility],non-owned Affiliates and Associated Physician Practices is amultiple site organization consisting of ambulatory clinics and hospital sitesin [place], [place], [place] and [place]. This disclosure is being madepursuant to the Care Everywhere program and may not contain all information available regarding this patient. Last updated 18.[facility] Allergies Active Allergy Reactions Criticality Noted Date Comments Cefaclor Urticaria,Itching,Un known,GI Discomfort Medium 11/10/2021 Abdominal Pain Penicillins Urticaria,Nausea and /or Vomiting,Unknown,GI Discomfort Medium 11/10/2021 Medications * Be aware that medications may not be up to date on this document. Alwaysverify current medications with the patient. Vit-Fe Fumarate-FA ( VITAMIN) 28-0.8 MG tablet Take 1 (one) tablet by mouth once daily Active aspirin EC (Ecotrin) 81 MG tablet Take 2 (two) tablets by mouth once daily Active propylthiouraci l 50 MG tablet Take 1 (one) tablet by mouth once daily 06/03/2023 Active Active Problems Problem Noted Date Diagnosed Date AMA (advanced maternal age) multigravida 35+ Graves disease 02/06/2022 In vitro fertilization 02/06/2022 Class 2 obesity due to exces s calories with body mass index (BMI) of 36.0 to 36.9 in adult 02/06/2022 Immunizations Immunization Administration Dates Next Due TD (AGE 7-ADULT) 05/24/2020 Family History Medical History Relation Name Comments Hypertension Father Hypertension Mother Hypertension Sister Relation Name Status Comments Brother Alive Father Alive Mother Alive Sister Alive Social History Tobacco Use Types Packs/Day Years Used Date Smoking Tobacco: Never Smokeless Tobacco: Never Tobacco Cessation:Counseling Given: Not Answered Alcohol Use Standard Drinks/Week Comments Not Currently 0 (1 standard drink = 0.6 oz pur e alcohol) occ Comments No Sex and Gender Information Value Date Recorded Sex Assigned at Not on file Legal Sex Female 2:43 PM CDT Gender Identity Not on file Sexual Orientation Not on file Last Filed Vital Signs Vital Sign Reading Time Taken Comments Blood Pressure 145/88 01/08/2024 9:45 AM CDT Pulse 84 01/08/2024 9:45 AM CDT Temperature - - Respiratory Rate - - Oxygen Saturation 99% 03/14/2022 9:41 AM MALTER OPERATOR Inhaled Oxygen Concentration - - Weight 114.8 kg (253 lb) 01/08/2024 9:33 AM CDT Height 177.8 cm (5' 10 ) 01/08/2024 9:33 AM CDT Body Mass Index 36.3 01/08/2024 9:33 AM CDT Plan of Treatment Health Maintenance Due Date Last Done Comments COLOGUARD (AGES 45-75) - COL ON CA SCREENING 1979 COLON MONITORING 1979 COLONOSCOPY - COLON CA SCREENING 1979 CT COLONOGRAPHY - COLON CA SCREENING 1979 Colorectal Cancer Screening 1979 FIT - COLON CA SCREENING 1979 FLEX SIG - COLON CA SCREENING 1979 LIPID TESTING 1979 MAMMOGRAM 1979 HEPATITIS C SCREENING 07/22/1997 HEPATITIS B VACCINE (1 of 3 - 19+ 3-dose series) 07/26/1998 SCREENING FOR DIABETES 08/16/2023 COVID-19 VACCINE (2 - 2023-2 5 season) 2023 10/29/2020 DEPRESSION SCREENING 04/22/2024 INFLUENZA VACCINE (Season Ended) 2024 PAP SMEAR 12/01/2026 12/02/2023, 09/26/2021 ZOSTER VACCINE (1 of 2) 07/26/2029 DTAP/TDAP/TD VACCINES (2 - T d or Tdap) 05/24/2030 05/24/2020 HIV SCREENING Completed 12/02/2023, 10/18/2021 HIB VACCINE Aged Out No longer eligi ble based on patient's age to complete this topic HPV VACCINE Aged Out No longer eligi ble based on patient's age to complete this topic MENINGOCOCCAL (Group B) VACCINE SHARED DECISION-MAKING Aged Out No longer eligible based on patient's age to complete this topic MENINGOCOCCAL GROUPS A/C/Y/W VACCINE Aged Out No longer eligible b ased on patient's age to complete this topic PNEUMOCOCCAL VACCINE Aged Out No long er eligible based on patient's age to complete this topic Insurance [facility] Address: [facility] [address] [place] [address] T
--- OUTSIDE RECORDS SUMMARY | 2024-08-26 17:30 | XMS_ITS | Referral Summary ---
Author Organization [facility] Address [address] [place] [address] Care Team Providers Care Wash Box Operator Name Role Phone Alexx Wong Primary Care Provider [phone] Musa Bauer MD Unavailable [phone] Ana Almaguer MD Unavailable [phone] Allergies Active Allergy Reactions Criticality Noted Date [...] Problem Noted Date Diagnosed Date Hyperthyroidism 08/07/2023 Social History Tobacco Use Types Packs/Day Years [...] 01/19/2022 1:59 PM CDT Plan of Treatment Not on file Insurance Care Teams Wash Box Operator Relationship Specialty Start Date End Date Alexx Wong PA [address] [facility] [address] [facility] [address] [place] [address] PCP - General Physician Pension Consultant 01/19/22 Musa Bauer MD [address] [facility] [address] [facility] [address] [place] [address] Consulting Physician Internal Medicine 07/26/23 Ana Almaguer MD [address] [place] [address] Radiation Oncologist Radiation Oncology 07/26/23
--- OUTSIDE RECORDS SUMMARY | 2024-08-26 17:30 | XMS_ITS | Clinical Summary ---
Author Organization [facility] Address [address] [place] [address] Care Team Providers Care Cad Technician Name Role Phone Charlie Malik MD Primary Care Provider [phone] Allergies Active Allergy Reactions Criticality Noted Date Comments Cefaclor Hives 02/29/2024 Penicillins Hives 02/29/2024 Medications famotidine (PEPCID) 20 MG tablet Take 1 tablet (20 mg total) by mouth 2 (two) times daily. 20 tablet 02/29/2024 Active Social History Tobacco Use Types Packs/Day Years Used Date Smoking Tobacco: Never Smokeless Tobacco: Never Tobacco Cessation:Counseling Given: Not Answered Alcohol Use Standard Drinks/Week Comments Never 0 (1 standard drink = 0.6 oz pur e alcohol) Comments No Sex and Gender Information Value Date Recorded Sex Assigned at Not on file Legal Sex Female 11:07 AM GENERAL FARMWORKER Gender Identity Not on file Sexual Orientation Not on file Last Filed Vital Signs Vital Sign Reading Time Taken Comments Blood Pressure 133/86 02/29/2024 12:30 PM GENERAL FARMWORKER Pulse 96 02/29/2024 11:12 AM GENERAL FARMWORKER Temperature 36.8 C (98.2 F) 02/29/2024 11:12 AM GENERAL FARMWORKER Respiratory Rate 18 02/29/2024 11:12 AM GENERAL FARMWORKER Oxygen Saturation 100% 02/29/2024 12:30 PM GENERAL FARMWORKER Inhaled Oxygen Concentration - - Weight 102.1 kg (225 lb) 02/29/2024 11:12 AM GENERAL FARMWORKER Height 177.8 cm (5' 10 ) 02/29/2024 11:12 AM GENERAL FARMWORKER Body Mass Index 32.28 02/29/2024 11:12 AM GENERAL FARMWORKER Plan of Treatment Health Maintenance Due Date Last Done Comments Colorectal Cancer Screening Colonoscopy (10 Years) 1979 Annual Physical 07/26/1982 Hepatitis B Vaccines (1 of 3 - 19+ 3-dose series) 07/26/1998 Mammogram Screening 2019 DTaP, Tdap and Td Vaccines ( 1 - Tdap) 05/25/2020 05/24/2020 COVID-19 Vaccine (2 - 2023-2 5 season) 2023 10/29/2020 Cervical Cancer Screening Pa p Smear (Age 30 to 64) Every 3 Years 12/01/2026 12/02/2023, 12/02/2023, 12/02/2023 Cervical Cancer Screening Pa p with HPV Testing (Age 30 to 64) Every 5 Years 12/01/2028 12/02/2023 Cervical Cancer Screening wi th HPV 12/01/2028 Hepatitis C Completed 12/02/2023, 12/02/2023 HPV Vaccines Aged Out No longer eligi ble based on patient's age to complete this topic Meningococcal B Vaccine Aged Out No l onger eligible based on patient's age to complete this topic Meningococcal Vaccine Aged Out No ariana miky eligible based on patient's age to complete this topic Pneumococcal Vaccine: Pediatrics (0 to 5 Years) and At-Risk Patients (6 to 49 Years) Aged Out No longer eligible b ased on patient's age to complete this topic RSV Immunizations Under 20 Months Aged Out No longer eligible b ased on patient's age to complete this topic Insurance [facility] [employer] Care Teams Cad Technician Relationship Specialty Start Date End Date Charlie Malik MD [address] [place] [id number] PCP - General FAMILY PRACTICE 02/29/24
--- NOTE | 2024-08-26 17:48 | OBADM ---
This patient, Javier Garcia, admitted to the OB room 115 for observation. Patient/family oriented to hospital policies and general routines including ID bracelet, bed and alarms, visiting hours, pain management, procedures, bathroom and other care routines, personal items, smoking policy, room service/diet, and visiting hours. Patient/Family are encouraged to report perceived risks to care and to ask questions if they do not understand what they are told or what they should do.
--- NOTE | 2024-08-26 19:04 | PC.NURSE ---
Called Samira Paulson CNM, update on pt, mid lower back pain 8 out of 10 not relieved with ice, heat, and position changes. Orders received for urinalysis and flexeril mg.
[2024-08-26] MEDS: CYCLOBENZAPRINE HCL 5 MG TABLET PO (19:28)
[2024-08-26 19:55] LABS: Add Urine Microscopic? YES; Appearance Urine Clear (Clear); Bacteria Urine None Seen /hpf; Bilirubin Urine Negative (Negative); Blood Urine 2+ (Negative); Color Urine Yellow (Yellow); Glucose Urine UA Negative (Negative); Ketones Urine Negative (Negative); Leukocyte Esterase Ur Negative LEU/UL (Negative); Nitrate Urine Negative (Negative); Non Pathogenic Casts 0-2; Protein Urine Negative (Negative); RBC Urine 21-50 /hpf (0-2); Specific Grav Ur 1.023 (1.001-1.035); Squamous Epithelial Cell Urine Occasional /hpf (Few); WBC Urine 0-5 /hpf (0-3); pH Urine 6.5 (5.0-9.0)
--- NOTE | 2024-08-26 20:22 | PC.NURSE ---
Called Samira Paulson CNM, update on labs and pain 5 out of 10 after flexeril. Orders received to discharge pt with flexeril 5 mg prescription, keep next scheduled appointment, and when to return to the unit.
--- NOTE | 2024-08-26 20:47 | PC.NURSE ---
Pt discharged with flexeril 5 mg prescription, instructions to keep next scheduled appointment, and when to return to the unit, pt verbalizes understanding.
--- NOTE | 2024-08-31 14:52 | PM.OBTRLD ---
OB - Triage/Final Diagnosis Visit Information Date of evaluation: 08/27/24 Reason for evaluation: other (back pain) Comments/Additional reasons for admission: I have assessed the risk for this patient, Javier Garcia, and determined that she would benefit from observation care. Evaluation Laboratory results: Laboratory Tests 08/26/24 19:15 Urine Color Yellow Urine Appearance Clear Urine pH 6.5 Ur Specific [place] 1.023 Urine Protein Negative Urine Glucose (UA) Negative Urine Ketones Negative Ur Blood (Man) 2+ H Urine Nitrate Negative Urine Bilirubin Negative Urine Urobilinogen 1.0 Leukocyte Esterase Rfl Negative Urine RBC 21-50 H Urine WBC 0-5 Ur Squamous Epith Cells Occasional Urine Bacteria None seen Urine Casts 0-2
== END 2024-08-26 20:47 | disposition home or self-care (01) ==
PROVIDERS: Advanced Practice Midwife; Admitting Provider Obstetrics & Gynecology; Visit Provider Obstetrics & Gynecology
DX: O99.891 Other specified diseases and conditions complicating pregnancy (principal); M54.9 Dorsalgia, unspecified; Z3A.23 23 weeks gestation of pregnancy
CPT/HCPCS: 81001; A9270; G0378; G0379

== ENCOUNTER 2024-10-24 10:37 | Outpatient (RCR) | payer OTHER, SELFPAY ==
[2024-10-24 11:24] VITALS: BP 122/67; PULSE 90
== END 2024-12-24 09:24 | disposition home or self-care (01) ==
LOC: ANHOBOP 10:37
PROVIDERS: Visit Provider Obstetrics & Gynecology
DX: O09.513 Supervision of elderly primigravida, third trimester (principal); Z3A.32 32 weeks gestation of pregnancy
CPT/HCPCS: 59025

== ENCOUNTER 2024-12-18 04:55 | Inpatient (IN) | payer OTHER, SELFPAY ==
[2024-12-18] VITALS (139 sets, daily range): BP systolic 111–156; BP diastolic 57–90; PULSE 72–107; RESP 16–18; TEMP 35.9–36.6; O2SAT 94–100; BMI 43.3
[2024-12-18 06:07] LABS: Hematocrit 40.7 % (37.0-47.0); Hemoglobin 12.7 g/dL (12.0-15.0); Immature Granulocyte Percent A 2.5 % (0-0.5); Lymphocytes Absolute Auto 2.26 K/mm3 (0.9-3.2); Mean Corpuscular HGB Conc 31.2 g/dl (32-36); Mean Corpuscular Hemoglobin 26.8 pg (26-34); Mean Corpuscular Volume 86.0 fl (80-100); Nucleated Red Blood Cells Absolute Auto 0.020 K/mm3 (0.0-0.012); Nucleated Red Blood Cells Perc 0.2 % (0.0-0.2); Platelet Count Result 286 k/mm3 (150-375); Red Blood Count 4.73 M/mm3 (4.2-5.4); White Blood Count 10.6 K/mm3 (4.5-10.0)
[2024-12-18] MEDS: LACTATED RINGERS 1,000 ML 125 ML IV CONT (06:36)
[2024-12-18] MEDS: OXYTOCIN 30 UNITS/NS 500 ML 30 UNITS/500 ML BAG IV CONT (06:45)
[2024-12-18 07:03] LABS: Syphilis IgG/IgM Antibody Non-Reactive (Nonreactive)
--- NOTE | 2024-12-18 08:46 | P.HPUP_ITS ---
History and Physical Update Update Date/Time: 12/18/24 08:46 44-year-old multiparous female at term, presents for elective induction of labor. Artificial rupture membranes was performed-clear fluid 4 cm/50%/-2. Reassuring status. Active management of labor. History and Physical has been reviewed, including an updated exam of the patient. There are NO changes in the patient's condition. Risks, benefits, and alternatives have been discussed and questions answered. P atient agrees to proceed with procedure.
--- NOTE | 2024-12-18 09:02 | WPDANESEPPF ---
Anes - Initial Pre Proc Eval Procedure: labor epidural Date/Time: 12/18/24 09:02 Surgeon: Andrews Smart MD Pre Op Diagnosis: labor pain Pre Op Diagnosis: IOL Patient Data Age: 44 Gender: F Height: 1.78 m Weight: 137 kg Last Vital Signs Temp 35.9 C L 12/18/24 07:49 Pulse 79 12/18/24 09:01 BP 138/60 12/18/24 09:01 Pulse Ox 100 12/18/24 08:57 O2 Del Method Room Air 12/18/24 06:58 Allergies Allergy/AdvReac Type Severity Reaction Status Date / Time sesame oil Allergy Severe Swelling Verified 12/18/24 07:20 of Lip/Tongue/Throat Penicillins Allergy Unknown vomitting,h Verified 12/18/24 07:20 ngoc cefaclor (From [facility]) AdvReac Severe Swelling Verified 12/18/24 07:20 of Lip/Tongue/Throat,hives Home Medications ?Medication ?Instructions ?Recorded ?Confirmed ?Type prenat.vits,mana,fsx-dhsm-jirrv 1 tablet PO DAILY 04/06/22 12/18/24 History cholecalciferol (vitamin D3) 1,250 1,250 mcg PO WEEKLY #14 tabs 01/08/24 12/18/24 Rx mcg (50,000 unit) tablet aspirin 81 mg tablet,delayed 81 mg PO DAILY 08/26/24 12/18/24 History release (Adult Aspirin Regimen) Laboratory Tests 12/18/24 05:35 WBC 10.6 H K/mm3 (4.5-10.0) RBC 4.73 M/mm3 (4.2-5.4) Hgb 12.7 g/dL (12.0-15.0) Hct 40.7 % (37.0-47.0) MCV 86.0 fl (80-100) MCH 26.8 pg (26-34) MCHC 31.2 L g/dl (32-36) RDW 17.1 H % (11.5-14.5) Plt Count 286 k/mm3 (150-375) MPV 10.4 fl (7.4-10.4) Immature Gran % (Auto) 2.5 H % (0-0.5) Neut % (Auto) 66.8 % (45.5-73.1) Lymph % (Auto) 21.3 % (18.3-44.2) Haralson % (Auto) 6.9 % (2.6-8.5) Eos % (Auto) 1.9 % (0-4.4) Baso % (Auto) 0.6 % (0.2-1.2) Lymph # (Auto) 2.26 K/mm3 (0.9-3.2) Haralson # (Auto) 0.7 H K/mm3 (0.1-0.6) Eos # (Auto) 0.2 K/mm3 (0-0.3) Baso # (Auto) 0.1 K/mm3 (0.0-0.1) Abs Immat Gran (auto) 0.27 H K/mm3 (0.00-0.031) Absolute Neuts (auto) 7.1 H K/mm3 (1.3-6.7) Absolute Nucleated RBC 0.020 H K/mm3 (0.0-0.012) Nucleated RBC % 0.2 % (0.0-0.2) Syphilis IgG/IgM Ab Non-reactive (Nonreactive) Patient hx anesthesia problems: none Family hx anesthesia problems: none Results Review: All pre-operative results and documents have been reviewed as part of the pre-operative evaluation. [facility] Past Medical History Medical History Thyroid disease Surgical History Surgical History History of cryosurgery History of tonsillectomy Family History Family History Father Hypertension Mother Hypertension Asthma Thyroid disease Sibling Hypertension Grandparent Diabetes mellitus Thyroid disease Grandparent Cerebrovascular accident COPD (chronic obstructive pulmonary disease) Social History Social History Smoking status: Never smoker Second hand tobacco smoke exposure: No Alcohol intake: current Substance use: never Substance use type: does not use Do You Feel Safe in your Home?: Yes Lack of Transportation: No Lack of Food: Never True Current Housing: I Have Housing Concerned About Future Housing: No Difficulty Paying Gas/Electric Bills: No Difficulty Paying for Meds: No Currently Unemployed: No Education: Master's Degree or Higher Difficulty w/ Childcare or Family Care: No Living arrangements: with family Occupation/Education: occupation Gender identity (if verbalized by the patient): Female Sexual Orientation (if Verbalized by the Patient): Straight or Heterosexual Spiritual care concerns: No Anes - Eval Final PreProcedure Day of Procedure 12/18/24 09:02 Patient weight: morbidly obese Heart: regular rate and rhythm Lungs: clear to auscultation and normal air movement Airway: Mallampati scale Neurological: alert and oriented ASA classification: III Emergent: no Anesthetic plan: proceed Anesthesia type and monitoring: regional epidural and standard monitoring Results Review: All pre-operative results and documents have been reviewed as part of the pre-operative evaluation. Informed Consent: The patient's anesthetic plan and its attendant risks and benefits were discussed with the patient/family/POA. Questions were solicited and answers provided to the satisfaction of the patient/family/POA.
[2024-12-18] MEDS: fentaNYL CITRATE INJ (*CRX) 100 MCG/2 ML VIAL 50 MCG IV PUSH (11:05)
[2024-12-18] MEDS: ONDANSETRON INJ 4 MG/2 ML VIAL IV PUSH (12:43)
[2024-12-18] MEDS: fentaNYL CITRATE INJ (*CRX) 100 MCG/2 ML VIAL IV PUSH (14:20)
--- NOTE | 2024-12-18 14:34 | PM.OBPRVD ---
OB - Vaginal Delivery Note Procedure Delivery date: 12/18/24 Induction method: AROM and Per Pitocin Protocol Delivery monitor: External FHT and External Uterine Route of delivery: Episiotomy description: None Laceration Description: Perineal - 1st Degree Delivery repair: vicryl Specimen: No Quantitative Blood Loss (ml): 250 Anesthesia type: None Disposition: Floor Complications: No immediate complications
[2024-12-18] MEDS: OXYTOCIN 30 UNITS/NS 500 ML 30 UNITS/500 ML BAG 125 UNITS IV CONT (14:57)
--- NOTE | 2024-12-18 16:53 | PC.NURSE ---
Patient transferred to post room #281 via wheel chair. Support person present. Oriented to unit, room, information board, rooming in, admission packet and security measures. Patient verbalizes understanding.
[2024-12-18] MEDS: CLINDAMYCIN 900 MG/D5W 50 ML 900 MG/50 ML PIGGYBACK 50 MG IVPB (17:43)
[2024-12-18] MEDS: DOCUSATE SODIUM 100 MG CAPSULE PO (17:46)
[2024-12-18] MEDS: ACETAMINOPHEN 325 MG TABLET 650 MG PO ×2 (17:46→23:52)
[2024-12-18] MEDS: IBUPROFEN 600 MG TABLET PO (20:13)
[2024-12-18] MEDS: BENZOCAINE 20% AER SPR (*SP) 56 GM CAN 1 SPRAY TOPICAL (23:53)
[2024-12-18] MEDS: WITCH HAZEL 40 PADS 1 PAD TOPICAL (23:53)
[2024-12-19] MEDS: CLINDAMYCIN 900 MG/D5W 50 ML 900 MG/50 ML PIGGYBACK 50 MG IVPB ×2 (02:03→10:15)
[2024-12-19 04:03] LABS: Hematocrit 35.2 % (37.0-47.0); Hemoglobin 11.2 g/dL (12.0-15.0)
[2024-12-19] MEDS: IBUPROFEN 600 MG TABLET PO ×2 (05:06→16:07)
[2024-12-19 08:12] VITALS: BP 134/72; PULSE 84; RESP 16; TEMP 36.4; O2SAT 97
[2024-12-19] MEDS: DOCUSATE SODIUM 100 MG CAPSULE PO ×2 (08:30→16:08)
[2024-12-19] MEDS: MULTIVIT/MIN/PREN/FOL AC/IRON TABLET 1 TAB PO (08:30)
--- NOTE | 2024-12-19 09:07 | P.PNOB_ITS ---
OB - PN: Subj Subjective Date/time seen: 12/19/24 09:07 Patient comments: no complaints, pain well controlled, incisional pain, tolerating diet and flatus present OB - PN: Obj Data Labs 12/19/24 03:38 Labs: Laboratory Results - last 24 hr 12/18/24 12/19/24 05:35 03:38 Hgb 11.2 L Hct 35.2 L Blood Type A2 Positive Antibody Screen Positive Antibody Identification Anti-M Antigen Identification A1 Antigen - NEGATIVE RASHEED, IgG Interpret Negative RASHEED, Poly Interpret Not Performed RASHEED, Complement Interp Negative Enhanced Crossmatch See Detail OB - PN A/P Plan day: 1 Plan: routine care Comments: No problems, routine care Time Spent With Patient Time: Total time spent is greater than 50% in coordination of care (as documented) at patient's floor/unit and/or counseling patient: Exam 2 Const: General: comfortable, no acute distress and alert Resp: Effort & Inspection: normal respiratory effort Auscultation: no crackles, no rales and no rhonchi Cardio: Rate: regular rate Heart sounds: no click, no murmurs and no rubs GI: Inspection: non-distended GI Palp: No Tenderness to palpation present (GI) Auscultation: normal bowel sounds Other: Incision - CDI Extrem: General: normal to inspection, no pedal edema and no calf tenderness
--- NOTE | 2024-12-19 09:08 | P.DS_ITS ---
DS: Admitting Diagnosis Discharge Date 12/19/2024 Admitting Diagnosis Term DS: Discharge Diagnosis Discharge Diagnosis (1) Term delivered: Code(s): O80 - Encounter for full-term uncomplicated delivery Status: Acute OB - DS: Summary OB Procedures : None OB Procedures Intrapartum: Spontaneous Vag Delivery OB Procedures: : None Peripartum Data Laceration Description: Perineal - 1st Degree Episiotomy description: None Time Spent with Patient Time attestation: Total time spent providing and/or coordinating discharge services: DS: Data Data Completed and Pending Labs on day of discharge: Labs from last 24 hours 12/19/24 12/18/24 03:38 05:35 Hgb 11.2 L Hct 35.2 L Blood Type A2 Positive Antibody Screen Positive Antibody Identification Anti-M Antigen Identification A1 Antigen - NEGATIVE RASHEED, IgG Interpret Negative RASHEED, Poly Interpret Not Performed RASHEED, Complement Interp Negative Enhanced Crossmatch See Detail Discharge Plan Discharge Discharging Clinician: Andrews Smart Patient Disposition: Home Activity: pelvic rest Diet: regular Patient Instructions: Antibiotic Form Patient Language: Kyrgyz Stand Alone Forms: General Discharge Information Follow-up/Referrals: Andrews Smart MD [Physician, HOSPITAL PHARMACY DIRECTOR] Discharge Medications: Continued prenat.vits,mana,wav-elrc-llrbu Tablet 1 tablet PO DAILY aspirin [Adult Aspirin Regimen] 81 mg tablet,delayed release (DR/EC) 81 mg PO DAILY Patient Comments: ... cholecalciferol (vitamin D3) 1,250 mcg (50,000 unit) tablet 1,250 mcg PO WEEKLY Qty: 14 1RF Patient Comments: Takes every Saturday. Date of admission: 12/18/24 04:55 Primary Care Provider: UNKNOWN,DOCTOR Admitting Provider: Andrews Smart Attending physician on admission: Andrews Smart Condition: Stable
[2024-12-19 12:24] VITALS: BP 136/83; PULSE 78; RESP 16; TEMP 36.4; O2SAT 96
[2024-12-19 21:25] VITALS: BP 137/81; PULSE 88; RESP 16; TEMP 36.5; O2SAT 98
--- NOTE | 2024-12-20 07:46 | P.PNOB_ITS ---
OB - PN: Subj Subjective Date/time seen: 12/20/24 07:46 Patient comments: no complaints, pain well controlled and tolerating diet OB - PN: Obj Data Labs 12/19/24 03:38 OB - PN A/P Plan day: 2 Plan: routine care and discharge home Time Spent With Patient Time: Total time spent is greater than 50% in coordination of care (as documented) at patient's floor/unit and/or counseling patient: Exam 2 Const: General: comfortable and no acute distress Resp: Effort & Inspection: normal respiratory effort Auscultation: no rales, no rhonchi and no wheezes Cardio: Rate: regular rate Heart sounds: no click, no murmurs and no rubs GI: GI Palp: Yes Soft to palpation and No Tenderness to palpation present (GI) Auscultation: normal bowel sounds Extrem: General: normal to inspection, no pedal edema and no calf tenderness
[2024-12-20 09:05] VITALS: BP 126/74; PULSE 79; RESP 18; TEMP 36.8; O2SAT 99
[2024-12-20] MEDS: MULTIVIT/MIN/PREN/FOL AC/IRON TABLET 1 TAB PO (09:05)
[2024-12-20] MEDS: DOCUSATE SODIUM 100 MG CAPSULE PO (09:05)
[2024-12-21 13:37] VITALS: BP 132/86; PULSE 92; RESP 18; TEMP 36.6; O2SAT 96
== END 2024-12-20 12:00 | disposition home or self-care (01) | DRG 807 ==
LOC: ANHLDR 05:54 → ANHOB2 16:57
PROVIDERS: Admitting Provider Obstetrics & Gynecology; Visit Provider Obstetrics & Gynecology
DX: O62.3 Precipitate labor (principal); Z37.0 Single live birth; O70.0 First degree perineal laceration during delivery; Z3A.39 39 weeks gestation of pregnancy
CPT/HCPCS: 36415; 85014; 85018; 85025; 86593; 86850; 86880; 86900; 86901; 86902; 86922; A9270; J2405; J2590; J3010; J7120

== ENCOUNTER 2025-02-02 00:48 | Day surgery (SDC) | payer OTHER, SELFPAY ==
[2025-01-26 14:10] VITALS: BMI 40.4
--- NOTE | 2025-01-26 14:14 | SUR.PREOP ---
[facility] has started construction of its new state of the art ER which will open Spring 2026. With this, we anticipate parking may be a challenge for some our surgical patients and families. Parking spaces are limited but are available for all Surgical, obstetrics, and ER patients sharing this lot. If you arrive and find you are having a hard time finding a parking space, please note that we understand the challenges, please drive around the hospital and park near Hospital Entrance 1. When you enter this entrance, you can ask a volunteer to direct or take you back to the surgical waiting area to check in. We appreciate everyone?s understanding of these expected challenges while we build for your future. Report to the Outpatient Waiting Room, entrance under the green pavilion located off [address], at time _830am___ on date ___02/02/25____. Planned Procedure Time: _1030 .? Time changes happen often and if your time is changed the preop area will call you the afternoon before. - You and your visitor will be asked to self-screen and do not enter if you have any COVID symptoms. Please call surgeon if you need to reschedule. - A mask is optional within the hospital at this time. Patients may have clear liquids (water, carbonated beverages, clear teas, apple juice) until 3 hours prior to surgery with a maximum of 20 ounces. - No food from midnight until time of surgery and no smoking, or chewing tobacco (or any form of nicotine). No chewing gum, candy or mints. Take only the following medications with a SIP of water on the morning of surgery: none DO NOT STOP ANY OF YOUR OTHER PRESCRIPTION MEDICATIONS PRIOR TO SURGERY EXCEPT THE FOLLOWING Hold all vitamins and supplements for 3 days per anesthesiologist. Medications to discontinue per physician N/a Date to take last dose of vitamins_01/29/25 Please no make-up, nail albanian, hairspray, perfume, deodorant, or body powder the day of surgery.? No jewelry (including any body piercings) or valuables the day of surgery, leave them at home.? Please take a shower or bath the night before, or the morning of, surgery with an antibacterial soap.? Wear comfortable, loose fitting clothing.? Children are encouraged to wear pajamas. - Jewelry must be removed prior to entering the operating room.? Rings and piercings that are not removed may be cut off. - The hospital will not accept responsibility for valuables.? - Please leave all valuables, including medications, at home the day of surgery. If you are going home after surgery, a licensed jinriksha driver must drive you home.? - NO public transportation without another adult if you receive anesthesia. - We recommend that an adult stay with you for 24 hours following discharge. - We also recommend that you do not drive, make important decision, drink alcoholic beverages, or take any drugs that were not prescribed by your health care provider for at least 24 hours after your discharge time. Follow any additional instructions given to you from your surgeon. Telephone instructions given to __Marychuy and asked if any additional questions and then verbalized understanding. Patient advised to call surgeon office or pre surgery nurse liaison [phone] if any additional questions.
[2025-02-02] VITALS (9 sets, daily range): BP systolic 144–168; BP diastolic 81–103; PULSE 60–92; RESP 15–18; TEMP 36.1–36.4; O2SAT 99–100
--- OUTSIDE RECORDS SUMMARY | 2025-02-02 00:51 | XMS_ITS | Clinical Summary ---
Author Organization [facility] Address [address] [place] [address] Care Team Providers Care Bakery Supervisor Name Role Phone Alexx Wong Primary Care Provider [phone] Musa Bauer MD Unavailable [phone] Aan Almaguer MD Unavailable [phone] Allergies Active Allergy Reactions Criticality Noted Date [...] 12:44 PM CDT Height 177.8 cm (5' 10) 01/19/2022 1:59 PM CDT Body Mass Index 33.78 01/19/2022 1:59 PM CDT Plan of Treatment Health Maintenance Due Date Last Done Comments Breast Cancer Screening-Mammogram 1979 Cervical Cancer Screening 1979 Colon Cancer Screening-Colonoscopy 1979 Depression Screening 1979 Hepatitis C Screening 1979 Varicella Vaccines (1 of 2 - 13+ 2-dose series) 07/26/1992 Hepatitis B Screening 07/26/1997 Regular Well Visit/Exam 18-64 07/26/1997 HPV Vaccines (1 - 3-dose SCD M series) 07/26/2006 DTaP/Tdap/Td Vaccine (1 - Tdap) 05/25/2020 Covid-19 Vaccine (2 - 2024-2 6 season) 2024 10/29/2020 Influenza Vaccine (#1) 2024 Pneumococcal vaccine <65 Aged Out No longer eligible based on patient's age to complete this topic Insurance Care Teams Bakery Supervisor Relationship Specialty Start Date End Date Alexx Wong PA [address] [facility] [address] [address] PCP - General Physician Aircraft Stress Analyst 01/19/22 Musa Bauer MD [address] [facility] [address] [address] Consulting Physician Internal Medicine 07/26/23 [place] [address] [place] [id number] Radiation Oncologist Radiation Oncology 07/26/23
--- OUTSIDE RECORDS SUMMARY | 2025-02-02 00:51 | XMS_ITS | Clinical Summary ---
Author Organization [facility] Address [address] [place] [id number] Care Team Providers Care Notch Machine Operator Name Role Phone Charlie Malik MD Primary Care Provider [phone] Allergies Active Allergy Reactions Criticality Noted Date [...] on file Legal Sex Female 11:07 AM JACK SETTER Gender Identity Not on file Sexual Orientation Not on file Last Filed Vital Signs Vital Sign Reading Time Taken Comments Blood Pressure 133/86 02/29/2024 12:30 PM JACK SETTER Pulse 96 02/29/2024 11:12 AM JACK SETTER Temperature 36.8 C (98.2 F) 02/29/2024 11:12 AM JACK SETTER Respiratory Rate 18 02/29/2024 11:12 AM JACK SETTER Oxygen Saturation 100% 02/29/2024 12:30 PM JACK SETTER Inhaled Oxygen Concentration - - Weight 102.1 kg (225 lb) 02/29/2024 11:12 AM JACK SETTER Height 177.8 cm (5' 10) 02/29/2024 11:12 AM JACK SETTER Body Mass Index 32.28 02/29/2024 11:12 AM JACK SETTER Plan of Treatment Health Maintenance Due Date Last Done Comments Colorectal Cancer Screening Colonoscopy (10 Years) 1979 Annual Physical 07/26/1982 Hepatitis B Vaccines (1 of 3 - 19+ 3-dose series) 07/26/1998 HPV Vaccines (1 - 3-dose SCD M series) 07/26/2006 Mammogram Screening 2019 DTaP, Tdap and Td Vaccines ( 1 - Tdap) 05/25/2020 05/24/2020 COVID-19 Vaccine (2 - 2024-2 6 season) 2024 10/29/2020 Influenza Adult (#1) 2025 Cervical Cancer Screening Pa p Smear (Age 30 to 64) Every 3 Years 12/01/2026 12/02/2023, 12/02/2023, 12/02/2023 Cervical Cancer Screening Pa p with HPV Testing (Age 30 to 64) Every 5 Years 12/01/2028 12/02/2023 Cervical Cancer Screening wi th HPV 12/01/2028 Hepatitis C Completed 12/02/2023, 12/02/2023 Meningococcal B Vaccine Aged Out No l [...] patient's age to complete this topic Insurance [facility] [employer] Care Teams Notch Machine Operator Relationship Specialty Start Date End Date Charlie Malik MD [address] [place] [id number] PCP - General FAMILY PRACTICE 02/29/24
--- OUTSIDE RECORDS SUMMARY | 2025-02-02 00:51 | XMS_ITS | Data Portability ---
Author Organization [facility], [facility] Address [address] [place] [address] [place] [address] Care Team Providers Care Track Helper Name Role Phone KAVITHA LAUGHLIN Primary Care Provider Assessment No assessment recorded. Plan of Treatment Reminders Order Date Submit Date Provider Last Modified By Organization Details Last Modified Time Details Appointments SURG Salpingec meg 2024 10:30A Americo SMART MD Not available Not available Not available SURG POST OP 2024 01:00P Americo SMART MD Not available Not available Not available Lab iron + TIBC + ferritin, serum 2024 025 [facility] (Lab), [address] [place], [address], 01/13/2025 03:53:14 CBC w/ auto diff 2024 025 [facility] (Lab), [address] [place], [address], 01/13/2025 03:53:13 Referral None recorded. Procedures None recorded. Surgeries None recorded. Imaging non-stres s test 2024 025 [email or web address] [address], [address], [place], [address], 12/16/2024 15:14:39 US, obstetric , biophysic al profile + non-stres s test 2024 025 [facility], [address], [address], [place], [address], 12/18/2024 09:39:50 Medication Orders None recorded. Patient TargetsNo targets recorded. Patient InstructionsNo instructions recorded. Reason for Referral None Reported. Results Created Date Observation Date Name Description Value Unit Range Abnormal Flag Note LastModifiedBy Organization Detail LastModifiedTime 11/26/1911/25/2024 CULTU RE: GROUP B STREP SCREE N, REFLE X SUSCE PTIBI LITY result report SEE RESULT S BELOW Test: Cultu re: Group B Strep , Refle x Susce ptibi lity ([facility]/ [facility] ) Speci men Sourc e: Vagin a/Rec karina Speci men Type: Vagin al/Re ctal Speci men Date: 1421 Resul t Date: 1404 Resul t Statu s: Final resul t Abnor mal: No Resul ting Lab: [facility] [address] [facility] [address] Tel: CULTU RE ----- ----- ----- --- No Group B strep isola lucille at 2 days (oma ctive broth enhan cemen t) Not Available [facility] (Lab) [address] [facility], [place], [address], 11/28/2024 15:08:50 01/13/2001/12/2025 CBC W/DIF F WBC 6.1 10'3/ uL 3.5-10 .5 Not Available [facility] (Lab) [address] [place], [address], 01/13/2025 03:53:13 01/13/2001/12/2025 CBC W/DIF F RBC 4.85 10'6/ uL (based on docume nted legal sex) 3.80-5 .20 Not Available [facility] (Lab) [address] [place], [address], 01/13/2025 03:53:13 01/13/20 25 01/12/2025 CBC W/DIF F HGB 12.8 g/dL (based on docume nted legal sex) 11.6-1 5.4 Not Available [facility] (Lab) [address], [place], [address], 01/13/2025 03:53:13 01/13/20 25 01/12/2025 CBC W/DIF F HCT 41.5 % (based on docume nted legal sex) 34.0-4 5.0 Not Available [facility] (Lab) [address], [place], [address], 01/13/2025 03:53:13 01/13/2001/12/2025 CBC W/DIF F MCV 85.6 fL 80.0-9 9.0 Not Available [facility] (Lab) [address], [place], [address], 01/13/2025 03:53:13 01/13/20 25 01/12/2025 CBC W/DIF F MCH 26.4 pg 27.0-3 4.0 low Not Available [facility] (Lab) [address], [place], [address], 01/13/2025 03:53:13 01/13/2001/12/2025 CBC W/DIF F MCHC 30.8 g/dL 32.0-3 5.5 low Not Available [facility] (Lab) [address], [place], [address], 01/13/2025 03:53:13 01/13/2001/12/2025 CBC W/DIF F RDW 15.5 % 11.0-1 5.0 high Not Available [facility] (Lab) [address], [place], [address], 01/13/2025 03:53:13 01/13/20 25 01/12/2025 CBC W/DIF F plt 273 10'3/ uL 150-40 0 Not Available [facility] (Lab) [address], [place], [address], 01/13/2025 03:53:13 01/13/20 25 01/12/2025 CBC W/DIF F MPV 11.1 fL 8.8-12 .1 Not Available [facility] (Lab) [address], [place], [address], 01/13/2025 03:53:13 01/13/20 25 01/12/2025 CBC W/DIF F NRBC's 0.0 % 0.0 Not Available [facility] (Lab) [address], [place], [address], 01/13/2025 03:53:13 01/13/20 25 01/12/2025 CBC W/DIF F absolute NRBCs 0.0 10'3/ uL no refere nce range establ ished Not Available [facility] (Lab) [address], [place], [address], 01/13/2025 03:53:13 01/13/2001/12/2025 CBC W/DIF F neutrophils 51.8 % 34.0-7 3.0 Not Available [facility] (Lab) [address], [place], [address], 01/13/2025 03:53:13 01/13/20 25 01/12/2025 CBC W/DIF F lymphocytes 36.5 % 15.0-5 0.0 Not Available [facility] (Lab) [address] [facility], [place], [address], 01/13/2025 03:53:13 01/13/20 25 01/12/2025 CBC W/DIF F monocytes 6.8 % 1.0-15 .0 Not Available [facility] (Lab) [address], [place], [address], 01/13/2025 03:53:13 01/13/2001/12/2025 CBC W/DIF F eosinophils 4.1 % 0.0-8. 0 Not Available [facility] (Lab) [address], [place], [address], 01/13/2025 03:53:13 01/13/20 25 01/12/2025 CBC W/DIF F basophils 0.5 % 0.0-2. 0 Not Available [facility] (Lab) [address], [place], [address], 01/13/2025 03:53:13 01/13/20 25 01/12/2025 CBC W/DIF F immature granulocytes 0.3 % no define d refere nce range Immat ure Granu locyt es (IG) repre sents autom ated enume ratio n of Metam yeloc ytes, Myelo cytes and Promy elocy ashlyn when IG is < 5%. Blast s are not inclu ded in IG and repor lucille separ ately if prese nt. Not Available [facility] (Lab) [address], [place], [address], 01/13/2025 03:53:13 01/13/2001/12/2025 CBC W/DIF F absolute neutrophils 3.1 10'3/ uL 1.5-8. 0 Not Available [facility] (Lab) [address], [place], [address], 01/13/2025 03:53:13 01/13/20 25 01/12/2025 CBC W/DIF F absolute lymphocytes 2.2 10'3/ uL 1.0-4. 0 Not Available [facility] (Lab) [address], [place], [address], 01/13/2025 03:53:13 01/13/20 25 01/12/2025 CBC W/DIF F absolute monocytes 0.4 10'3/ uL 0.2-1. 0 Not Available [facility] (Lab) [address], [place], [address], 01/13/2025 03:53:13 01/13/20 25 01/12/2025 CBC W/DIF F absolute eosinophils 0.3 10'3/ uL 0.0-0. 6 Not Available [facility] (Lab) [address], [place], [address], 01/13/2025 03:53:13 01/13/2001/12/2025 CBC W/DIF F absolute basophils 0.0 10'3/ uL 0.0-0. 3 Not Available [facility] (Lab) [address], [place], [address], 01/13/2025 03:53:13 01/13/2001/12/2025 CBC W/DIF F absolute immature granulocytes 0.0 10'3/ uL 0.00-0 .10 Refer ence range s for nonbi nary/ inter sex or unspe cifie d gende r patie nts have not been estab lishe d. Pleas e refer to the [facility] table for range s estab lishe d for cisge nder patie nts and evalu ate in the clini mana emiliano xt of the indiv idual patie nt: https ://gypsy melchor book. nm.or g/gen derx Not Available [facility] (Lab) [address], [place], [address], 01/13/2025 03:53:13 01/13/2001/12/2025 ORACIO TIN / IRON / TRANS ORACIO N / TIBC iron 75 ug/dL 40-170 Not Available [facility] (Lab) [address], [place], [address], 01/13/2025 03:53:14 01/13/2001/12/2025 ORACIO TIN / IRON / TRANS ORACIO N / TIBC transferrin 225 mg/dL 200-36 0 Not Available [facility] (Lab) [address], [place], [address], 01/13/2025 03:53:14 01/13/20 25 01/12/2025 ORACIO TIN / IRON / TRANS ORACIO N / TIBC ferritin 79.2 NG/mL 8.0-25 2.0 Not Available [facility] (Lab) [address] [facility], [place], [address], 01/13/2025 03:53:14 01/13/20 25 01/12/2025 ORACIO TIN / IRON / TRANS ORACIO N / TIBC TIBC 315 ug/dL 250-45 0 Not Available [facility] (Lab) [address] [facility], [place], [address], 01/13/2025 03:53:14 01/13/20 25 01/12/2025 ORACIO TIN / IRON / TRANS ORACIO N / TIBC iron saturation 24 % 20-55 Not Available [facility] (Lab) [address] [place], [address], 01/13/2025 03:53:14 11/19/19 25 11/18/2024 US, obste tric, bioph ysica l profi le + non-s tress test No observ ation record ed. [email or web address] [facility] [address], [place], [address], 11/18/2024 16:56:13 11/19/19 25 11/18/2024 US, obste tric, bioph ysica l profi le + non-s tress test No observ ation record ed. EDUARDO [address], [place], [address], 11/18/2024 21:41:51 11/19/19 25 11/18/2024 non-s tress test No observ ation record ed. [email or web address] [facility] [address], [place], [address], 11/18/2024 15:17:29 11/26/19 25 11/25/2024 US, obste tric, bioph ysica l profi le + non-s tress test No observ ation record ed. [email or web address] [facility] [address], [place], [address], 11/25/2024 18:42:37 11/26/19 25 11/25/2024 US, obste tric, follo w-up No observ ation record ed. [email or web address] [address], [place], [address], 11/26/2024 08:30:22 11/27/19 US, obste tric, bioph ysica l profi le + non-s tress test No observ ation record ed. [email or web address] [facility] [address], [place], [address], 11/26/2024 13:25:56 12/03/19 25 12/02/2024 US, obste tric, bioph ysica l profi le + non-s tress test No observ ation record ed. [email or web address] [facility] [address], [place], [address], 12/02/2024 18:50:48 12/03/19 25 12/02/2024 US, obste tric, bioph ysica l profi le + non-s tress test No observ ation record ed. EDUARDO [address], [place], [address], 12/05/2024 22:53:58 12/10/19 25 12/09/2024 US, obste tric, follo w-up No observ ation record ed. [email or web address] [facility] [address], [place], [address], 12/09/2024 18:22:02 12/10/19 25 12/09/2024 US, obste tric, follo w-up No observ ation record ed. EDUARDO [address], [place], [address], 01/13/2025 07:14:06 12/10/1912/09/2024 US, obste tric, bioph ysica l profi le + non-s tress test No observ ation record ed. [email or web address] [address], [place], [address], 12/09/2024 18:22:11 12/11/1912/10/2024 non-s tress test No observ ation record ed. [email or web address] [facility] [address], [place], [address], 12/10/2024 09:34:43 12/12/19 US, obste tric, bioph ysica l profi le + non-s tress test No observ ation record ed. [email or web address] [facility] [address], [place], [address], 12/11/2024 09:23:43 12/12/1912/11/2024 non-s tress test No observ ation record ed. EDUARDO [facility] [address], [place], [address], 01/13/2025 07:14:05 12/12/19 US, obste tric, bioph ysica l profi le + non-s tress test No observ ation record ed. [email or web address] [facility] [address], [place], [address], 12/11/2024 09:33:38 12/17/1912/16/2024 US, obste tric, bioph ysica l profi le + non-s tress test No observ ation record ed. [email or web address] [address], [place], [address], 12/16/2024 17:52:42 12/17/19 25 12/16/2024 US, obste tric, bioph ysica l profi le + non-s tress test No observ ation record ed. EDUARDO [address], [place], [address], 01/13/2025 07:14:05 12/17/19 25 12/16/2024 non-s tress test No observ ation record ed. EDUARDO [facility] [address], [place], [address], 01/13/2025 07:14:05 12/17/19 non-s tress test No observ ation record ed. [email or web address] [place] [address] [address], [place], [address], 12/16/2024 15:07:04 Result Notes None recorded. Problems Name Problem SNOMED Code Status Onset Date Resolution Date Notes Provider Name and Address Organization Details Recorded Time In vitro fertiliz ation Completed echo & NSTs - echo 01/19 WNL, no follow up needed Landry terry, [facility] 3 17:06:53 Elderly primigra alie [id number] Completed Landry terry, [facility] 3 17:06:53 Human oocyte donor, age 35 and older Completed donor 35 years old, AMA, normal genetic screenin g Landry terry, [facility] 3 17:06:53 Large for gestatio n age fetus 856305837 Completed 97% at 19 weeks Andrews Smart MD [address], [place], [address], [facility] 2 17:05:27 Hyperthy roidism 81893552 Completed Graves disease, We are taking over monitori ng from endocrin ology. Repeat TSH at 28 weeks, had normal labs with endocrin ology on 11/07 Landry terry [facility] 3 17:06:53 Antibody measurem ent [id number] Completed unique Ab result Landry terry, [facility] 3 17:06:53 Graves' disease 326635011 Completed no tx right now labs wnl [facility] 10/13 Level II US & Office visit 10:30 MFM faxed TSH labs to endocrin ologist - no medicati on indicate d at this time RPT TSH 4wks delivery 39-39.6w ks Norma terry [facility] 5 22:14:36 Advanced maternal age 669832418 Completed AMA .40 antenata l testing weekly @36wks Norma terry [facility] 5 22:12:07 Antibody screen Completed nonspeci fic antibody , needs observat ion, history of transfus ion 2022 per pt card she carries around + Antibody M per [facility] repeat monthly titers Norma terry [facility] 5 11:42:10 Body mass index 30+ - obesity 901246823 Completed 37 week antenata l testing Norma terry [facility] 5 13:07:36 Body mass index 30+ - obesity 691589169 Active 37 week antenata l testing Norma terry [facility] 5 13:07:35 Alpha thalasse janelle 03134224 Completed + carrier - (This pregnanc y pt had egg donor ) Norma terry [facility] 5 13:11:22 Alpha thalasse janelle 40253521 Active + carrier - (This pregnanc y pt had egg donor ) Norma terry [facility] 5 13:11:22 Pregnanc y 55959760 Completed 202108/06/2022 Margie Thibodeaux null, [facility] 5 10:55:38 Polyhydr amnios 28591309 Completed 2021 mild - 02/14 JAMES 23.8cm Andrews Smart MD [address], [place], [address], [place] [facility] 2 17:27:17 SARS-CoV -2 Completed 2021 Landry Marques null, [facility] 3 17:06:53 Pregnanc y 98381656 Completed 202401/07/2025 Margie Thibodeaux mara, [facility] 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 5 09:05:23 In vitro fertiliz ation Completed 2024 to get echo, with egg donor age 31 and spouse sperm Norma Jacome mara [facility] 5 22:20:49 Anemia of pregnanc y 24508828 Completed 2024 weekly Fe infusion s starting at 33 weeks faxed Infusion order 11/04 3 doses received by 11/26 pending last dose Norma Ayaz terry [facility] 5 12:34:13 Problem Notes None recorded. Procedures Surgical History Date Name Laterality Status Provider Name and Address Organization Details Recorded Time 04/02/20 24 in vitro fertilization completed Kenia [facility] 05/21/2024 12:53:23 12/17/19 24 Date of Last Mammogram completed Kenia Gordon [facility] 05/21/2024 12:51:54 12/02/19 24 Date of Last Pap Smear completed Kenia [facility] 05/21/2024 12:51:15 08/15/19 22 Embryo transfer intrauterine completed Francesca Mejias [facility] 09/26/2021 16:00:44 10/06/19 21 Colposcopy completed Mallika Paulson CNM [address], [place], [address], [facility] 10/05/2020 15:05:16 10/06/19 21 Colposcopy completed Francesca Mejias [facility] 10/05/2020 14:56:14 10/06/19 21 Colposcopy completed Francescajosh Mejias [facility] 10/05/2020 15:30:36 04/22/19 01 cryosurgery completed Francescajosh Mejias [facility] 10/04/2020 17:48:55 04/22/19 01 Colposcopy completed Francescajosh Mejias [facility] 02/04/2022 14:57:18 04/22/18 86 tonsilectomy/aysha oids completed Francescajosh Mejias [facility] 10/04/2020 17:48:39 Imaging Results None recorded. Procedure Notes None recorded. Medical Equipment None Reported. Allergies Allergen ID Allergen Name Allergen Category Reaction Reaction Severity Criticality Documentation Date Start Date Code Code System Note Provider Name and Address Organization Details Recorded Time Product containin g penicilli n (product) medicatio n Not available Not available Not available 10/04/2020 56986 8001 SNOMED Francesca Mejias [facility] 14:59:22 88325 Nayla medicatio n abdominal pain severe Not available 10/04/202067372 5 RxNorm Yara Ley [facility] 17:46:37 Medications Name Sig Start Date Stop Date Status Note LastModified by Organization Details LastModified Time medl needle 22g 1.5 inch USE DIRECTED WITH PROGESTE ILIANA 09/26 completed Not Available Not Available Not Available med swabs USE DIRECTED 05/21 completed Not Available Not Available Not Available med sharp container USE DIRECTED 05/21 completed Not Available Not Available Not Available sharps container and alcohol USE DIRECTED 09/26 completed Not Available Not Available Not Available progester one inj 50mg/ml ethyl oleate INJECT 2 ML INTRAMUS CULARLY EVERY DAY 06/10 completed Not Available Not Available Not Available medl syringe 3ml 20g 1 inch USE DIRECTED WITH PROGESTE ILIANA 09/26 completed Not Available Not Available Not Available medl syringe 3ml 22g 1 inch USE DIRECTED WITH PREGNYL 09/26 completed Not Available Not Available Not Available medl syringe 3ml 21g 1 inch USE DIRECTED WITH OMNITROP E 09/26 completed Not Available Not Available Not Available BD Regular Bevel De Graff 27 gauge x 1/2 USE DIRECTED WITH MENOPUR 09/26 completed Not Available Not Available Not Available insulin syringe U-100 with needle 1/2 mL 29 USE DIRECTED 05/21 completed Not Available Not Available Not Available medroxypr ogesteron e 10 mg tablet 05/21 completed Not Available Not Available Not Available prednison e 10 mg tablet TAPER DIRECTED DAILY FOR 12 DAYS 10/04 completed Not Available Not Available Not Available propylthi ouracil 50 mg tablet TAKE 1 TABLET BY MOUTH EVERY 8 HOURS 06/10 completed Not Available Not Available Not Available azithromy ascencion 250 mg tablet TAKE 2 TABLETS BY MOUTH ON DAY ONE, THEN TAKE 1 TABLET BY MOUTH EVERY DAY 12/01 completed Not Available Not Available Not Available hydrocodo ne 5 mg-acetam inophen 325 mg tablet TAKE 1 TABLET BY MOUTH EVERY 4-6 HOURS NEEDED FOR PAIN 12/01 completed Not Available Not Available Not Available prednison e 20 mg tablet 05/21 completed Not Available Not Available Not Available Pregnyl 10,000 unit intramusc ular solution INJECT 10,000 UNITS INTRAMUS CULARLY DIRECTED 09/26 completed Not Available Not Available Not Available progester one 50 mg/mL intramusc ular oil INJECT 1-2ML INTRAMUS CULARLY EVERY DAY DIRECTED 05/21 completed Not Available Not Available Not Available famotidin e 20 mg tablet TAKE 1 TABLET BY MOUTH TWICE DAILY active Not Available Not Available No t Available dexametha sone 1 mg tablet TAKE 1 TABLET BY MOUTH EVERY DAY 09/26 completed Not Available Not Available Not Available benzonata te 100 mg capsule TAKE ONE CAPSULE BY MOUTH EVERY 8 HOURS NEEDED FOR COUGH / CONGESTI ON 09/26 completed Not Available Not Available Not Available progester one micronize d [address] CAPSULE VAGINALL Y TWICE DAILY 06/10 completed Not Available Not Available Not Available estradiol 2 mg tablet TAKE 1 TABLET BY MOUTH THREE TIMES DAILY 06/10 completed Not Available Not Available Not Available letrozole 2.5 mg tablet TAKE 1 TABLET BY MOUTH EVERY DAY 09/26 completed Not Available Not Available Not Available dexametha sone 0.5 mg tablet TAKE 1 TABLET BY MOUTH DAILY 05/21 completed Not Available Not Available Not Available Cetrotide 0.25 mg subcutane ous kit INJECT 0.25MG SUBCUTAN EOUSLY EVERY DAY DIRECTED 09/26 completed Not Available Not Available Not Available BD Luer-Xochilt Syringe 3 mL 22 x 1 1/2 USE DIRECTED TO MIX AND/OR WITHDRAW 05/21 completed Not Available Not Available Not Available leuprolid e 1 mg/0.2 mL subcutane ous kit INJECT 0.2ML UNDER THE SKIN ONCE DAILY 05/21 completed Not Available Not Available Not Available cyclobenz aprine 5 mg tablet TAKE 1 TABLET BY MOUTH DAILY NEEDED FOR MUSCLE SPASM 01/12 completed Not Available Not Available Not Available Ultra Comfort Insulin Syringe 0.5 mL 30 gauge x 5/16 USE DIRECTED WITH LEUPROLI DE 09/26 completed Not Available Not Available Not Available BD Regular Bevel De Graff 25 gauge x 1 1/2 TO INJECT PROGESTE ILIANA INTRAMUS CULARLY DIRECTED BY PHYSICIA N 05/21 completed Not Available Not Available Not Available Menopur 75 unit subcutane ous solution INJECT 75 UNITS SUBCUTAN EOUSLY EVERY DAY DIRECTED 09/26 completed Not Available Not Available Not Available dexametha sone 09/26 completed Not Available Not Available Not Available leuprolid e 09/26 completed Not Available Not Available Not Available Vitamins 12/01 completed Not Available Not Available Not Available Vitamin D3 10/18 completed Not Available Not Available Not Available Easy Touch Insulin Syringe 0.5 mL 29 gauge x 1/2 USE DIRECTED WITH OMNITROP E 09/26 completed Not Available Not Available Not Available Omnitrope 5.8 mg subcutane ous solution INJECT 50 UNITS SUBCUTAN EOUSLY EVERY DAY FOR 4 DOSES 09/26 completed Not Available Not Available Not Available cholecalc iferol (vitamin D3) 1,250 mcg (50,000 unit) capsule TAKE 1 CAPSULE BY MOUTH WEEKLY 01/12 completed Not Available Not Available Not Available BD Regular Bevel De Graff 21 gauge x 1 1/2 USE DIRECTED EVERY DAY 09/26 completed Not Available Not Available Not Available Xyzal 5 mg tablet Take 1 tablet every day by oral route. 09/26 completed Prescrib ed Elsewher e Not Available Not Available Not Available coQ10 (ubiquino l) 10/05 completed Not Available Not Available Not Available + DHA active Not Available Not Available Not Available Estarylla 0.25 mg-0.035 mg tablet TAKE 1 TABLET BY MOUTH DAILY 05/21 completed Not Available Not Available Not Available Gonal-F RFF Redi-Ject 900 unit/1.44 mL subcutane ous pen injector INJECT 300 UNITS SUBCUTAN EOUSLY EVERY DAY DIRECTED 09/26 completed Not Available Not Available Not Available Gonal-F RFF Redi-Ject 450 unit/0.72 mL subcutane ous pen injector INJECT 225 UNITS UNDER THE SKIN EVERY EVENING DIRECTED . DOSE MAY RANGE BETWEEN 75 UNITS TO 300 UNITS DAILY BASED ON MD INSTRUCT IONS 09/26 completed Not Available Not Available Not Available Gonal-F RFF Redi-Ject 300 unit/0.48 mL subcutane ous pen injector INJECT 300 UNITS SUBCUTAN EOUSLY EVERY DAY DIRECTED 09/26 completed Not Available Not Available Not Available 24 Hour Allergy Relief 10/05 completed Not Available Not Available Not Available 24 Hour Nasal Allergy 55 mcg spray aerosol 09/26 completed Not Available Not Available Not Available Vitals Date Recorded Body weight Systolic And Diastolic Provider Name and Address Organization Details Last Updated DateTime 12/16/2024 793155.36164 g 134/88 mm[Hg] Kenia Gordon [facility] 12/16/2024 15:01:47 Date Recorded Body height Body mass index (BMI) Body weight Systolic And Diastolic Provider Name and Address Organization Details Last Updated DateTime 01/12/2025 177.8 cm 40.3 kg/m2 042979.46 g 142/83 mm[Hg] Kenia Gordon [facility] 01/12/2025 11:04:46 Social History Question Answer Notes LastModified by Organizat ion Details LastModified Time Tobacco Smoking Status Never Smoker Tacos Gill mara [facility] 10/25/2022 15:07:23 Do You Have An Advance Directive? No [email or web address] Information n ot available 10/05/2020 If You Are , What Was Your Level Of Alcohol Consumption Prior To ? Occasional Information not available 10/25/2022 How Many Years Have You Consumed Alcohol? 20 [email or web address] Information not available 10/05/2020 Are You Blind Or Do You Have Difficulty Seeing? No Information n ot available 07/18/2020 What Is Your Level Of Caffeine Consumption? None Information not available 10/18/2021 How Much Tobacco Do You Chew? None [email or web address] Information not available 10/05/2020 In The 14 Days Before Symptom Onset, Have You Had Close Contact With A Laboratory-confirm ed COVID-19 While That Case Was Ill? No [email or web address] Information n ot available 10/05/2020 In The 14 Days Before Symptom Onset, Have You Had Close Contact With A Person Who Is Under Investigation For COVID-19 While That Person Was Ill? No [email or web address] Information not available 10/05/2020 Have You Been To An Area Known To Be High Risk For COVID-19? No Information not available 07/18/2020 Are You Deaf Or Do You Have Serious Difficulty Hearing? No Information not available 07/18/2020 What Type Of Diet Are You Following? SPECIFIC [email or web address] Information n ot available 10/05/2020 What Is The Highest Grade Or Level Of School You Have Completed Or The Highest Degree You Have Received? [id number] [email or web address] Information not available 10/05/2020 Are There Any Guns Present In Your Home? No [email or web address] Information not available 10/05/2020 Have You Ever Been Counseled For Unhealthy Alcohol Use? No [email or web address] Information not available 10/25/2022 Do You Use Protection During Sex? No [email or web address] Information not available 10/05/2020 Do You Use Your Seat Belt Or Car Seat Routinely? Yes [email or web address] Information not available 10/05/2020 Are You Sexually Active? Yes [email or web address] Information not available 10/25/2022 Do You Have Smoke And Carbon Monoxide Detectors In Your Home? Yes [email or web address] Information not available 10/05/2020 How Much Tobacco Do You Smoke? No Information not available 10/05/2020 Do You Use Sunscreen Routinely? Yes [email or web address] Information not available 10/05/2020 Has Tobacco Cessation Counseling Been Provided? No [email or web address] Information not available 10/25/2022 Have You Used IV Drugs? No [email or web address] Information not available 10/05/2020 Do You Have Difficulty Walking Or Climbing Stairs? No [email or web address] Information not available 10/25/2022 Sex: Unknown Functional Status Question Answer Note LastModified by Organizat ion Details LastModified Time Do you use any illicit or recreational drugs? No Information not available 07/18/2020 Do you or have you ever used any other forms of tobacco or nicotine? No [email or web address] Information not available 10/25/2022 What is your level of alcohol consumption? None Information not available 10/18/2021 Are you able to walk independently without assistance or assistive devices? [email or web address] Information not available 07/18/2020 Are you able to care for yourself independently? Yes [email or web address] Information not available 10/25/2022 What is your occupation? [employer] Information not available 10/18/2021 Do you have difficulty dressing, bathing, grooming, or toileting? No [email or web address] Information not available 10/25/2022 What is your exercise level? Moderate [email or web address] Information not available 10/05/2020 Mental Status Question Answer Note LastModified by Organization D etails LastModified Time Do you feel stressed (tense, restless, nervous, or anxious, or unable to sleep at night)? [id number] [email or web address] Information not available 10/05/2020 Family History Relationship Description Onset Age of this Age Resolved Age Notes LastModified by Organization Details LastModified Time Mother Asthma Not available 14:51:12 Mother Hypertensive disorder Not available 2020 14:54:03 Mother Disorder of thyroid gland Not available 2020 14:54:51 Maternal Grandfather Asthma Not available 2020 14:51:12 Maternal Grandmother Diabetes mellitus [email or web address] Not available 2020 17:46:07 Maternal Grandmother Hypertensive disorder Not available 2020 14:54:03 Maternal Grandmother Disorder of thyroid gland Not available 2020 14:54:51 Maternal Aunt Diabetes mellitus [email or web address] Not available 2020 17:46:07 Maternal Aunt Disorder of thyroid gland Not available 2020 14:54:51 Maternal Aunt Malignant neoplasm of colon [email or web address] Not available 2020 14:24:26 Father Hypertensive disorder Not available 2020 14:54:03 Sister Hypertensive disorder Not available 2020 14:54:03 Sister Pre-eclampsi a [email or web address] Not available 2020 14:24:26 Brother Asthma [email or web address] Not available 0 10/05/2020 14:24:26 Medical History Condition Response Allergies (Food, seasonal, environmental ) Y Other N Drug/Latex Allergies/Reactions N Breast Cancer N Blood Transfusion N Lung Disease N Dermatologic Disorders N Defects or Inherited Disease N Breast Problem N Gestational Diabetes N Hematologic disorders N Anesthesia Complications N History of STI Y Deep Vein Thrombosis N Polycystic ovary syndrome N Anxiety Disorder N Autoimmune disease N Arthritis N Polyps N Infertility Y History of abnormal pap Y Acid Reflux (GERD) Y Cancer N Varicosities N Stroke N Neurologic/Epilepsy N Endometriosis N High Cholesterol N Headaches N Fibromyalgia N Kidney Disease N Heart Problems N Thyroid Problems Y Kidney or Bladder Problems N GI Problems N Eating Disorder N Anemia N Art (IVF or FET) Y Psychiatric Illness N Ovarian Cancer N Diabetes N Pulmonary (TB, Asthma) N Hepatitis/Liver Disease N No Past Medical History N Eczema N Urinary Tract Infection N Abuse/Domestic Violence N Asthma N Trauma/Violence N Depression/ depression N Heart Disease N Pre-Eclampsia N Hypertension N Osteoporosis N Thrombophilias N Gynecological History Statement/Question Response Abnormal Pap Yes Date of Last Mammogram 12/17/2023 Date of LMP 03/04/2024 N Was last menstrual period normal Y STIs/STDs Yes HPV Vaccine N Colposcopy 10/05/2020 Duration of Flow (days) 5 13 Current Control Method Breastfeedi ng/DE GUZMAN Are cycles usually normal Y Date of Last Colonoscopy Frequency of Cycle (Q days) 30 Sexually Active? Y Date of DEXA bone scan Age of first menstrual cycle 12 Date of Last Pap Smear 12/02/2023 Sexual Problems? N Desired Control Method Sterilizati on LMP Definite N Obstetrics History GPAL:G 2 P 2 0 0 2 Type Value Full Term 2 Living 2 Total 2 Past Encounters Encounter ID Performer Location Encounter Start Date Encounter Closed Date Diagnosis/Indication Diagnosis SNOMED-CT Code Diagnosis ICD10 Code Diagnosis IMO Codes Diagnosis Note [id number] Kayla Murray , [facility] [address] [address] 07/18/2020 10:50:27 07/18/2020 15:47:10 Gynecologic examination [id number] Z01.419 Take Calcium with Vitamin D 1200mg daily if not receiving in daily diet. It is strongly advised to have an annual flu shot and up can obtain at most pharmacies . If you have not had a TDap shot in the last 10 years you should obtain one as well. Discussed with patient & provided with informatio n regarding Gardisil vaccine to prevent the 4 strains for HPV that cause cervical cancer if under age 26. Encourage safe sexual practices, to use condoms and limit partners if not already in a monogamous relationsh ip. Do monthly self breast exams. Have mammogram yearly or every other year depending on family history. BRCA testing is now available for patients with strong genetic history of female cancer. If interested contact the office. Engage in daily exercise of low impact aerobic exercise 45-60 minutes 4-5 times weekly. Avoid tobacco and illicit drugs as well as using moderation with alcohol intake less than 1-2 8 oz beverages daily. This lifestyle behavior pattern will lead to less health conditions and longer life span. If BMI greater than 25 weight watchers or dietary consult advised. Patient received above instructio ns, and questions have been answered. If you have any questions please call or respond to this email. Patient was made aware of the patient portal and may obtain a paper copy of today's plan if desired. Pursuing IVF/Fertil ity treatments . Paphpv sent Monogamous No issues or concerns. Mammo ordered by PCP Screening mammography 24 094565 Z12.31 [id number] Mallika Paulson [facility] [address],[place] [address] 10/05/2020 14:24:22 10/05/2020 15:09:33 Low grade squamous intraepithelial lesion on cervical Papanicolaou smear 6188995472 9105 R87.612 Human erica llomavirus deoxyribonucleic acid detected, high risk on cervical specimen 457651193 R87.810 [id number] Kayla Murray [facility] [address],[place] [address] 10/05/2020 14:19:59 10/05/2020 15:09:25 [id number] Andrews Smart MD [facility] [address],[place] [address] 09/26/2021 15:20:08 09/26/2021 15:51:52 Uncertain viability of [id number] O36.80X0 Z3A.[id number] [facility] [address],[place] [address] 09/26/2021 15:21:37 09/27/2021 17:33:06 Gynecologic examination 02168795 Z01.419 Z11.51 test positive 043452378 Z32.01 Risk factors addressed: Tobacco Cessation, Safe Sexual Practices, environmen nicolasa, work hazards, travel restrictio ns, seat belt use.Eat a health well balanced diet, avoid alcohol, tobacco, and street drugs.Enga ge in daily low impact exercise, avoid temperatur e extremes, and cat, rodent, and bird feces.Avoi d travel to areas where zika virus is a concern.Of fered cf/sma/nip t. Will do NIPT. Does not need cf/sma. Handouts given and discussed with patient.Ch ildbirth classes recommende d.New OB sheet given.If previous , counseling . MFM consult d/t graves. Plan echo d/t IVF.Pt verbalizes that she understand s the importance of above instructio ns.All questions were answered.P atient reminded to have annual well woman examinatio n and address [facility] . [id number] Andrews Smart MD [facility] [address],[place] [address] 10/18/2021 15:50:12 10/18/2021 17:01:43 screening 127516665 Z36.82 [id number] Andrews Smart MD [facility] [address],[place] [address] 10/18/2021 15:51:10 10/18/2021 17:45:41 Routine care 382541260 Z34.01 [id number] Andrews Smart MD [facility] [address],[place] [address] 11/13/2021 15:57:18 11/13/2021 17:08:16 Routine care 902450532 Z34.01 [id number] Andrews Smart MD [facility] [address],[place] [address] 12/13/2021 16:24:44 12/13/2021 18:13:52 screening for malformation 708443835 Z36.3 [id number] Andrews Smart MD [facility] [address],[place] [address] 12/13/2021 16:25:07 12/13/2021 18:13:36 Routine care 538856592 Z34.01 [id number] Andrews Smart MD [facility] [address],[place] [address] 12/27/2021 15:30:32 12/27/2021 16:11:42 Routine care 292281636 Z34.01 [id number] MD Cornelio Enrique [address],[place] [address] 01/11/2022 16:45:24 01/12/2022 14:33:09 Routine care 634160322 Z34.01 [id number] Nery Sullivan [facility] [address],[place] [address] 02/05/2022 09:30:50 02/05/2022 10:48:22 Routine care 759310827 Z34.92 [id number] MD Cornelio Enrique [address],[place] [address] 02/26/2022 15:00:56 02/26/2022 16:35:26 Routine care 374775478 Z34.01 [id number] MD Cornelio Enrique [address],[place] [address] 03/22/2022 15:04:41 03/22/2022 16:05:51 IVF - in-vitro fertilization 0933362614 2102 O09.819 [id number] MD Cornelio Ernique [address],[place] [address] 03/22/2022 15:05:01 03/22/2022 16:01:24 IVF - in-vitro fertilization 0921810907 2 O09.813 O99.283 O09.513 Z3A.33 [id number] MD Cornelio Enrique [address],[place] [address] 03/22/2022 15:05:17 03/22/2022 17:53:37 Hyperthyroidism in 7184655641 9100 E05.90 [id number] MD Cornelio Enrique [address],[place] [address] 03/29/2022 14:57:04 03/29/2022 16:07:59 Large for gestation age fetus 615564040 O36.63X0 O09.819 Z3A.34 [id number] MD Cornelio Enrique [address],[place] [address] 03/29/2022 14:57:21 03/29/2022 16:43:29 IVF - in-vitro fertilization 9014245160 2102 O09.813 O99.283 O09.513 Z3A.34 [id number] MD Cornelio Enrique [address],[place] [address] 03/29/2022 14:57:40 03/29/2022 17:12:43 Routine care 455997018 Z34.01 [id number] MD Cornelio Enrique [address],[place] [address] 04/05/2022 15:08:16 04/05/2022 16:53:48 IVF - in-vitro fertilization 3402858844 2102 O09.813 O99.283 O09.513 Z3A.34 [id number] Andrews Smart MD [facility] [address],[place] [address] 04/05/2022 15:09:07 04/06/2022 14:08:30 IVF - in-vitro fertilization 7813345743 2102 O09.813 O99.283 O09.513 Z3A.35 [id number] Andrews Smart MD [facility] [address],[place] [address] 04/05/2022 15:09:23 04/06/2022 14:09:30 Routine care 602831897 Z34.01 [id number] Mallika Paulson, [facility] [address],[place] [address] 04/11/2022 17:25:00 04/12/2022 16:14:46 Routine care 982901917 Z34.93 [id number] MD Cornelio Enrique [address],[place] [address] 04/19/2022 14:52:52 04/19/2022 16:38:25 IVF - in-vitro fertilization 2304648017 2 O09.813 O99.283 O09.513 Z3A.35 [id number] MD Cornelio Enrique [address],[place] [address] 04/19/2022 14:53:53 04/19/2022 16:39:12 IVF - in-vitro fertilization 1292443024 2 O09.813 O99.283 O09.513 Z3A.37 [id number] MD Cornelio Enrique [address],[place] [address] 04/19/2022 14:54:55 04/19/2022 16:38:06 Routine care 351286234 Z34.01 [id number] MD Cornelio Enrique [address],[place] [address] 04/26/2022 14:53:05 04/26/2022 16:08:18 IVF - in-vitro fertilization 0899496654 2102 O09.813 O99.283 O09.513 Z3A.37 [id number] MD Cornelio Enrique [address],[place] [address] 04/26/2022 14:53:25 04/26/2022 16:44:53 IVF - in-vitro fertilization 4274986642 2 O09.813 O99.283 O09.513 Z3A.38 [id number] MD Cornelio Enrique [address],[place] [address] 04/26/2022 14:53:43 04/26/2022 16:59:52 Routine care 913208447 Z34.01 [id number] MD Cornelio Enrique [address],[place] [address] 05/28/2022 11:25:56 05/28/2022 11:58:05 care 606535208 Z39.2 This patient is a 41-year-ol d female who presents for follow-up. She is a 1 para 1. She is breastfeed ing. Her baby is doing well. She is doing well. Her mood is good. She has not had sex and she is not interested in contracept ion. They plan on having another baby soon. They were given the when your recommenda tion. She has no complaints . She will follow-up in 2 months for well-woman exam. [id number] Andrews Smart MD [facility] [address],[place] [address] 06/28/2022 11:18:08 06/28/2022 18:44:50 [id number] Kayla Murray [facility] [address],[facility] [place] [address] 10/05/2022 12:58:33 10/05/2022 14:33:07 Gynecologic examination 57774771 Z01.419 Suggested Calcium with Vitamin D 1200-1500m g daily. Patient advised to get an annual flu shot in the fall and she could obtain at [facility] or [facility] clinic. Also to obtain TDap vaccinatio n if you have not had one in the last 10 years. Recommend yearly mammograms . Encouraged monthly self breast exams. Encourage safe sexual practices, to use condoms and limit partners if not already in a monogamous relationsh ip. Engage in daily exercise of low impact aerobic exercise 45-60 minutes 4-5 times weekly. Avoid tobacco and illicit drugs as well as using moderation with alcohol intake less than 1-2 8 oz beverages daily. This lifestyle behavior pattern will lead to less health conditions and longer life span. If BMI greater than 25 weight watchers or dietary consult advised. All questions have been answered. Patient appears to understand informatio n, but if you have any questions please call or respond to this email.Pap/ hpv opts to send STD Screen sent Genetic Screen discussed Colon Screen na Dexa Screen na Routine Labs ordered HCG Missed period [id number] N 92.5 +UPTHCG orderedWil l make new ob and RN's updated. [id number] Andrews Smart MD [facility] [address],[place] [address] 10/25/2022 15:06:12 10/25/2022 16:10:37 Threatened miscarriage 70615286 O20.0 O36.80X0 Z3A.01 [id number] Denia JudefranciscaVICTORINA [facility] [address],[place] [address] 12/02/2023 14:35:40 12/02/2023 17:01:17 Gynecologic examination 82473680 Z01.419 Z11.51 WWEBC - declinedpa p updatedgc/ ct/trich testing added to papHIV/hep B&C/Syphil is testing ordered per pt requestmam lamar UTD / PCP Do monthly self breast exams. It is advised to get annual flu shot in the fall and she could obtain at local pharmacy. If you haven't received the Tdap vaccine in the last 10 years you should obtain one as well. Have mammogram yearly. Engage in regular exercise. Avoid tobacco and illicit drugs. This lifestyle behavior pattern will lead to less health conditions and longer life span. If BMI greater than 25 dietary consult advised. Questions have been answered. Venereal d isease screening 190004854 Z11.3 Sexually t ransmitted infectious disease 2356210 A64 Pain in pelvis 08739684 R10.2 pelvic u/s orderedpre cautions discussedw ill reach out to pt with results when available [id number] Andrews Smart MD [facility] [address],[place] [address] 05/21/2024 11:48:56 05/21/2024 12:36:02 [id number] Andrews Smart MD [facility] [address],[place] [address] 05/21/2024 11:49:16 05/21/2024 15:06:32 Amenorrhea 41456133 N91.2 this patient is a 43-year-ol d female who presents for amenorrhea . She is a positive test. Ultrasound revealed a 1st trimester gestation. Patient has no complaints . We talked about early care. Talked about genetic screening. We talked about her ultrasound results. We talked about the 12 week ultrasound that has genetic screening components . She was given recommenda tions on exercise, diet, over-the-c ounter medication s. We reviewed her obstetric history. We reviewed her medical history. We reviewed her social history. She will begin routine care at her next visit. [id number] MD Cornelio Enrique [address],[place] [address] 06/10/2024 13:53:30 06/10/2024 14:44:17 screening 953249113 Z36.82 Z3A.12 [id number] MD Cornelio Enrique [address],[place] [address] 06/10/2024 13:54:12 06/10/2024 15:43:02 Routine care 069425411 Z34.01 Gestation period, 12 weeks 51488788 Z3A.12 [id number] Andrews Smart MD [facility] [address],[place] [address] 07/08/2024 16:02:01 07/08/2024 16:39:29 Routine care 914630467 Z34.01 [id number] Andrews Smart MD [facility] [address],[place] [address] 08/06/2024 16:14:45 08/06/2024 17:42:48 Multigravida of advanced maternal age 685880704 O09.529 O09.819 O99.210 Z36.3 Z3A.20 00524162 [id number] Andrews Smart MD [facility] [address],[place] [address] 08/06/2024 16:16:23 08/06/2024 17:58:58 Graves' disease 140799883 E05.00 12031 care status 24 8244828 Z34.82 79919709 [id number] Andrews Smart MD [facility] [address],[place] [address] 09/07/2024 09:58:48 09/07/2024 11:42:32 Follow-up encounter 546522111 Z36.2 O43.102 Z3A.25 0871428194 [id number] Andrews Smart MD [facility] [address],[place] [address] 09/07/2024 09:59:17 09/07/2024 11:42:26 care status 255993218 Z34.82 35347693 [id number] SELENE STRONG MD [facility] [address],[place] [address] 10/06/2024 09:20:53 10/06/2024 10:14:17 Follow-up encounter 471141410 Z36.2 O09.813 O09.523 O43.103 Z3A.29 2371941079 [id number] SELENE STRONG MD [facility] [address],[place] [address] 10/06/2024 09:21:28 10/06/2024 10:39:39 Body mass index 30+ - obesity 362094678 E66.9 65235117 Multigravi da of advanced maternal age 764436395 O09.523 41733274 Conceived by in vitro fertilization 964768641 Z78.9 35636396 Gestation period, 29 weeks 17723705 Z3A.29 6720794 [id number] SELENE STRONG MD [facility] [address],[place] [address] 10/22/2024 11:54:14 10/22/2024 12:58:53 Alpha thalassemia 06382170 D56.0 Body mass index 30+ - obesity 966464508 E66.9 Graves' disease 25241341 4 E05.00 74261 Multigravi da of advanced maternal age 549203379 O09.523 56896154 [id number] SELENE STRONG MD [facility] [address] [place] [address] 10/28/2024 15:30:16 10/28/2024 16:12:14 IVF - in-vitro fertilization 9189809761 2102 O09.819 O09.523 O99.210 Z86.39 Z3A.32 5480268582 [id number] SELENE STRONG MD [facility] [address],[place] [address] 10/28/2024 15:30:38 10/28/2024 17:29:25 In vitro fertilization 59316738 Z31.83 570423 [id number] SELENE STRONG MD [facility] [address],[place] [address] 10/28/2024 15:30:49 10/29/2024 11:55:54 Body mass index 30+ - obesity 809277124 E66.9 - weekly testing Graves' disease 87059065 4 E05.00 - stable off meds- repeat thyroid studies at 34 weeks Anemia of 2734 2004 O99.019 50304686 - failed PO Fe- ferritin 11, TIBC elevated, % sat decreased- start Fe infusions Multigravi da of advanced maternal age 864393618 O09.523 46745040 - bASA- weekly testing Gestation period, 32 weeks 3514789 Z3A.32 4311081 [id number] SELENE STRONG MD [facility] [address],[place] [address] 11/04/2024 15:16:32 11/04/2024 16:08:21 Hyperthyroidism in 5513089587 9100 O99.283 E05.90 O09.813 O99.213 O32.9XX0 Z3A.33 16284643 [id number] SELENE STRONG MD [facility] [address],[place] [address] 11/04/2024 15:17:17 11/04/2024 16:50:00 In vitro fertilization 84068172 Z31.83 329801 [id number] SELENE STRONG MD [facility] [address],[place] [address] 11/04/2024 15:17:46 11/04/2024 17:06:47 Anemia of 35119966 O99.019 09778674 - failed PO Fe- ferritin 11, TIBC elevated, % sat decreased- start Fe infusions Body mass index 30+ - obesity 137676824 E66.9 - weekly testing Graves' disease 59529877 4 E05.00 - stable off meds- repeat thyroid studies at 34 weeks Multigravi da of advanced maternal age 768946900 O09.523 78201757 - bASA- weekly testing Gestation period, 33 weeks 35159403 Z3A.33 3232366 [id number] MD Cornelio COLMENARES [address] [place] [address] 11/11/2024 13:55:31 11/11/2024 14:38:44 care: obstetric risk 033984148 O09.813 O99.280 O09.523 O99.213 O32.2XX0 Z3A.34 0078141 [id number] MD Cornelio COLMENARES [address] [place] [address] 11/11/2024 13:55:49 11/11/2024 15:22:13 Conceived by in vitro fertilization 442719316 Z78.9 44979951 [id number] MD Cornelio COLMENARES [address] [place] [address] 11/11/2024 13:56:06 11/11/2024 15:46:09 Graves' disease 292162918 E05.00 92181 - stable off meds- repeat thyroid studies at 34 weeks Transverse lie 51980363 O32.2XX0 76238137 Anemia of 2734 2003 O99.019 86554748 - failed PO Fe- ferritin 11, TIBC elevated, % sat decreased- start Fe infusions Body mass index 30+ - obesity 899914163 E66.9 - weekly testing 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 5605028790 Gestation period, 34 weeks 00994109 Z3A.34 1345226 Multigravi da of advanced maternal age 529079568 O09.523 82551356 - bASA- weekly testing [id number] MD Cornelio COLMENARES [address] [place] [address] 11/18/2024 13:57:07 11/18/2024 15:19:50 In vitro fertilization 88083578 Z31.83 833873 [id number] MD Cornelio COLMENARES [address] [place] [address] 11/18/2024 13:56:42 11/18/2024 14:28:21 IVF - in-vitro fertilization 2156840789 2102 O09.819 O09.523 O99.210 O99.280 Z3A.35 3793494785 [id number] SELENE STRONG MD [facility] [address],[place] [address] 11/18/2024 13:57:22 11/18/2024 15:02:17 Anemia of 85273361 O99.019 66787844 - failed PO Fe- ferritin 11, TIBC elevated, % sat decreased- continue Fe infusions Bilobate placenta 627093 2002 O43.199 1699388372 Body mass index 30+ - obesity 651791089 E66.9 - weekly testing Graves' disease 77466481 4 E05.00 - stable off meds- labs wnl at 34 weeks Multigravi da of advanced maternal age 979489357 O09.523 43858259 - bASA- weekly testing Gestation period, 35 weeks 09982802 Z3A.35 3957623 - continue pNV [id number] Andrews Smart MD [facility] [address],[place] [address] 11/25/2024 13:48:42 11/25/2024 14:30:05 IVF - in-vitro fertilization 1941694707 2102 O09.819 O09.523 O99.213 Z3A.36 4336385421 [id number] [facility] [address],[place] [address] 11/25/2024 13:49:01 11/26/2024 14:22:[id number] [facility] [address],[place] [address] 11/25/2024 13:49:15 11/25/2024 15:25:55 Gestation period, 36 weeks 30277010 Z3A.36 7190289 [id number] SELENE STRONG MD [facility] [address] [place] [address] 12/02/2024 14:53:50 12/02/2024 15:33:24 IVF - in-vitro fertilization 7226858018 2102 O09.819 O32.0XX0 O99.283 O09.523 O99.213 Z3A.37 [id number] MD Cornelio COLMENARES [address],[place] [address] 12/02/2024 14:54:43 12/04/2024 03:51:21 IVF - in-vitro fertilization 3974659887 2 O09.819 [id number] MD Cornelio Enrique [address],[place] [address] 12/02/2024 14:55:09 12/02/2024 16:52:30 care status [id number] Z34.83 [id number] [id number] MD Cornelio COLMENARES [address],[place] [address] 12/09/2024 13:47:35 12/09/2024 14:26:41 care: obstetric risk 947266337 O09.813 O09.523 O99.213 Z3A.38 [id number] [id number] MD Cornelio Enrique [address],[place] [address] 12/09/2024 14:25:44 12/10/2024 10:03:04 Obesity 422961042 O99.210 [id number] [id number] MD Cornelio Enrique [address],[place] [address] 12/09/2024 14:26:11 12/09/2024 15:11:21 care status 804307985 Z34.83 40540990 [id number] MD Cornelio COLMENARES [address] [place] [address] 12/16/2024 13:53:07 12/16/2024 14:28:35 care: obstetric risk 400957880 O09.813 O09.529 O99.210 Z3A.39 [id number] [id number] MD Cornelio COLMENARES [address],[place] [address] 12/16/2024 13:53:31 12/16/2024 15:14:39 Multigravida of advanced maternal age 440095280 O09.523 62020800 - bASA- weekly testing [id number] SELENE STRONG MD [facility] [address],[facility] [place] [address] 12/16/2024 13:53:46 12/18/2024 15:14:33 Anemia of 48515880 O99.019 13225242 - failed PO Fe- ferritin 11, TIBC elevated, % sat decreased- continue Fe infusions Bilobate placenta 191767 8588 O43.199 3549920394 Body mass index 30+ - obesity 251839448 E66.9 - weekly testing Graves' disease 13008438 4 E05.00 - stable off meds- labs wnl at 34 weeks Gestation period, 39 weeks 46087430 Z3A.39 6936912 Multigravi da of advanced maternal age 494079933 O09.523 72492432 - bASA- weekly testing [id number] Andrews Smart MD [facility] [address],[place] [address] 12/18/2024 08:44:36 12/19/2024 09:36:46 [id number] Andrews Smart MD [facility] [address],[place] [address] 01/12/2025 10:38:54 01/12/2025 12:23:20 Anemia 395748354 D64.9 1402474 state 0145615 1 Z39.2 601909 This patient is a 35-year-ol d female who presents for care. Her baby is brest feeding. Her baby is doing very well. Her mood is good. She has not had intercours e. Her bleeding is resolved. contracept ion - to have lap salpingect anshu. to return in 2-3 months forl-woman exam Health Concerns Section Related Observation LastModified by Organization Detai ls LastModified Time None Recorded Concern Status LastModified by Organization Details LastModified Time None Recorded Advance Directives Directive N: Payers Insurance Date Sequence Insurance Name Policy Number Policy Stafford Covered Member ID Stafford Member ID Guarantor Name 10/22/2024 2 HARESH (POS II) [id number] Dereje Genous [id number] Latona S Genous 12/08/2024 1 [facility] [id number] Latona Genous [id number] Latona S Genous 10/06/2024 PAYMENT PLAN Latona S Genous 12/08/2024 3 [facility] [id number] Latona Genous [id number] Latona S Genous 01/30/2025 1 [facility] [id number] Latona Genous [id number] Latona S Genous 12/08/2024 4 [facility] [id number] Latona Genous [id number] Latona S Genous 01/09/2025 PAYMENT PLAN Latona S Genous 12/08/2024 2 [facility] [id number] Latona Genous [id number] Latona S Genous 12/08/2024 1 [facility] [id number] Latona Genous [id number] Latona S Genous 12/08/2024 1 [facility] (O) Latona Genous [id number] Latona S Genous 12/08/2024 1 R (O) [id number] Latona Genous [id number] Latona S Genous 12/08/2024 1 R [id number] Latona Genous [id number] Latona S Genous 12/08/2024 3 [facility] [id number] Latona Genous [id number] Latona S Genous 08/17/2022 PAYMENT PLAN Latona S Genous 12/08/2024 2 [facility] [id number] Latona Genous [id number] Latona S Genous 03/08/2023 PAYMENT PLAN Latona S Genous 12/08/2024 1 [facility] [id number] Latona Genous [id number] Latona S Genous Notes Date Note Type Note Provider Name and Address Organization Details Recorded Time 12/16/2024 text/html Generic HPI TemplateReported by Patient SELENE STRONG MD [address], [place], [address], [facility] 12/18/2024 13:40:55 01/12/2025 text/html VisitReported by Patient This patient is a 35-year-old female who presents for care. Her baby is brest feeding. Her baby is doing very well. Her mood is good. She has not had intercourse. Her bleeding is resolved. contraception - to have lap salpingectomy. to return in 2-3 months forl-woman exam Andrews Smart MD [address], [place], [address], [place] [facility] 01/12/2025 12:22:31 OBGyn Episode Ob Episode Information Episode Created Date Number of Fetuses Patient Bloodtype Patient rh Status Prepregnancy Weight lbs Domestic Partner Domestic Partner Phone Father Name [employer] Supervisor Status 10/19/19 22 1 A Positive CLOSED Fetus Data First Name Last Name Admitted to NICU Weight (g) Sex Living Outcome Pediatric Complications Fetus ID Race Codes Race Delivery Type 3033.39 65 M true Full Term [id number] Vaginal Delivery Problems Problem Notes 02/27 - Per [facility] r/t AMA, hype rthyroid, and IVF pt to start weekly NST/BPP @ 32 weeks. Pt already has first appt for this at [facility] on 03/14/22!![facility] 11/15/21 for u/s and OV r/t Graves 01/17 815 Level II u/s & [employer] office visit, 02/14 230P u/s & NPMFM RECOMMENDATIONS: low dose ASA, TSH/T4 q4-6wks, Early GDM screen & rpt 26-28wks, Growth q4wks, weekly NST/BPP @ 32wks if TSH uncontrolled, antibody screen q 4- 6wks; positive non specific antibody - check antibody screen now [facility] gave lab for this, recheck every 4-6 wks, and [facility]/s & [employer] office visit 03/14 9AM Nonspecific antibody positivity has resolved.04/02 TSH WNL Problem Name Start Date End Date Resolution Snomed Code Not e SARS-CoV-2 03/29/2022 895973702 In vitro fertilization 8662691 5 echo & NSTs - echo 01/19 WNL, no follow up needed Elderly primigravida 84247139 Human oocyte donor, age 35 and older [id number] donor 35 ye ars old, AMA, normal genetic screening Hyperthyroidism 43635323 Grav es disease, We are taking over monitoring from endocrinology. Repeat TSH at 28 weeks, had normal labs with endocrinology on 11/07 Antibody measurement [id number] unique Ab result Dmitriy Calculation Initial Dmitriy Date Initial Exam Date Initial Exam Provider Initial Ultrasound Date Last Menstrual Period Date Ultra Sound Weeks Gestation 05/01/2022 10/18/2021 09/26/2021 07/28/2021 9 Eighteen To Twenty Week Dmitriy Update Ultra Sound Date Fundal Height At Umbil Quickening Date Ultra Sound Latest Weeks Gestation Final Dmitriy Confirmed By Final Dmitriy Confirmed Date Final Dmitriy Date Ultra Sound Latest Days Gestation 0 [email or web address] 10/18/2021 05/04/19 23 0 Pre- Flowsheet Flowsheet Date 10/18/2021 Soto Score Blood Edema Fundus Height Fundus Units Glucose Ketones Leukocytes Nitrite Labor Signs Protein Cervic Dilation Cervic Effacement Cervic Station 12 Type Weight in lbs Pre/Post Dialysis Refused Weight 240.731845931078 BP Diastolic BP Location Tested BP Systolic BP Type 92 R arm 136 sitting Fetus Heart Rate Present A 155 Fetus Movement Comments this patient is a 41-year-ol d 1 at 12 weeks gestation with a egg donor and in-vitro fertilization. will require extra care for the in vitro fertilization, will be considered advanced maternal age for the age of the donor and the mother. has Graves disease but is untreated. Has Endocrinology taking care of her during the . Patient is having genetic screening. She had a normal screening ultrasound. To begin routine care. She was vaccinated. She is given vaccine recommendations. We discussed care in detail. Flowsheet Date 11/13/2021 Soto Score Blood Edema Fundus Height Fundus Units Glucose Ketones Leukocytes Nitrite Labor Signs Protein Cervic Dilation Cervic Effacement Cervic Station Type Weight in lbs Pre/Post Dialysis Refused Weight 239.499269363814 BP Diastolic BP Location Tested BP Systolic BP Type 88 R arm 135 sitting Fetus Heart Rate Present A 145 Fetus Movement Comments constipation, given recommen dations on constipation. Alpha fetoprotein not done today, to get at 19 weeks. Flowsheet Date 12/13/2021 Soto Score Blood Edema Fundus Height Fundus Units Glucose Ketones Leukocytes Nitrite Labor Signs Protein Cervic Dilation Cervic Effacement Cervic Station Type Weight in lbs Pre/Post Dialysis Refused BP Diastolic BP Location Tested BP Systolic BP Type Fetus Heart Rate Present Fetus Movement Comments Flowsheet Date 12/13/2021 Soto Score Blood Edema Fundus Height Fundus Units Glucose Ketones Leukocytes Nitrite Labor Signs Protein Cervic Dilation Cervic Effacement Cervic Station 19 Type Weight in lbs Pre/Post Dialysis Refused BP Diastolic BP Location Tested BP Systolic BP Type 86 R arm 144 sitting 92 L arm 145 sitting Fetus Heart Rate Present A 146 Fetus Movement A Yes Comments LGA, Elevated blood pressure , to return to clinic in 2 weeks for a blood pressure check in visit, needs echo for in vitro fertilization, need to check thyroid in the 3rd trimester Flowsheet Date 12/27/2021 Soto Score Blood Edema Fundus Height Fundus Units Glucose Ketones Leukocytes Nitrite Labor Signs Protein Cervic Dilation Cervic Effacement Cervic Station 21 Type Weight in lbs Pre/Post Dialysis Refused Weight 253.086869827662 BP Diastolic BP Location Tested BP Systolic BP Type 88 R arm 129 sitting Fetus Heart Rate Present A 145 Fetus Movement A Yes Comments no complaints, no problems, coming to back to do the early diabetes screening. Recent thyroid testing, to repeat at 28 weeks. Endocrinology not following in more Flowsheet Date 01/11/2022 Soto Score Blood Edema Fundus Height Fundus Units Glucose Ketones Leukocytes Nitrite Labor Signs Protein Cervic Dilation Cervic Effacement Cervic Station 26 Type Weight in lbs Pre/Post Dialysis Refused Weight 258.380964875518 BP Diastolic BP Location Tested BP Systolic BP Type Fetus Heart Rate Present A 134 Fetus Movement Comments no complaints, no problem Flowsheet Date 02/05/2022 Soto Score Blood Edema Fundus Height Fundus Units Glucose Ketones Leukocytes Nitrite Labor Signs Protein Cervic Dilation Cervic Effacement Cervic Station none 30 none trace Type Weight in lbs Pre/Post Dialysis Refused Weight 260.428475940186 BP Diastolic BP Location Tested BP Systolic BP Type 86 131 Fetus Heart Rate Present A 143 Fetus Movement A Yes Comments no problems, patient stated that at M she had an increase in fluidDoing well. No contractions. Order given for labs. Discussed positioning and stretches for hip discomfort. Monthly growth ultrasounds. Flowsheet Date 02/26/2022 Soto Score Blood Edema Fundus Height Fundus Units Glucose Ketones Leukocytes Nitrite Labor Signs Protein Cervic Dilation Cervic Effacement Cervic Station 30 Type Weight in lbs Pre/Post Dialysis Refused Weight 263.482077276571 BP Diastolic BP Location Tested BP Systolic BP Type 84 R arm 128 sitting Fetus Heart Rate Present A 134 Fetus Movement Comments Discussed polyhydramnios, di scussed large for gestational age, discussed NSTs at 32 weeks. They may not be necessary until 36 weeks. The antibody screen is negative now. She does need a NSTs for IVF starting at 36 weeks. We are going to discuss this with [facility], contact patient. Repeating thyroid testing and MAI testing today. [facility] was not too concerned about this borderline polyhydramnios. They will follow-up on at in the next scan in 2 weeks. Flowsheet Date 03/22/2022 Soto Score Blood Edema Fundus Height Fundus Units Glucose Ketones Leukocytes Nitrite Labor Signs Protein Cervic Dilation Cervic Effacement Cervic Station Type Weight in lbs Pre/Post Dialysis Refused BP Diastolic BP Location Tested BP Systolic BP Type Fetus Heart Rate Present Fetus Movement Comments Flowsheet Date 03/22/2022 Soto Score Blood Edema Fundus Height Fundus Units Glucose Ketones Leukocytes Nitrite Labor Signs Protein Cervic Dilation Cervic Effacement Cervic Station Type Weight in lbs Pre/Post Dialysis Refused BP Diastolic BP Location Tested BP Systolic BP Type Fetus Heart Rate Present Fetus Movement Comments Flowsheet Date 03/22/2022 Soto Score Blood Edema Fundus Height Fundus Units Glucose Ketones Leukocytes Nitrite Labor Signs Protein Cervic Dilation Cervic Effacement Cervic Station 33 Type Weight in lbs Pre/Post Dialysis Refused Weight 266.657481352209 BP Diastolic BP Location Tested BP Systolic BP Type 82 R arm 139 sitting 85 R arm 137 sitting Fetus Heart Rate Present A 145 Fetus Movement Comments repeat TSH today, antibody t esting has been negative with the [facility] lab. , reassuring testing today. Flowsheet Date 03/29/2022 Soto Score Blood Edema Fundus Height Fundus Units Glucose Ketones Leukocytes Nitrite Labor Signs Protein Cervic Dilation Cervic Effacement Cervic Station Type Weight in lbs Pre/Post Dialysis Refused BP Diastolic BP Location Tested BP Systolic BP Type Fetus Heart Rate Present Fetus Movement Comments Flowsheet Date 03/29/2022 Soto Score Blood Edema Fundus Height Fundus Units Glucose Ketones Leukocytes Nitrite Labor Signs Protein Cervic Dilation Cervic Effacement Cervic Station Type Weight in lbs Pre/Post Dialysis Refused BP Diastolic BP Location Tested BP Systolic BP Type Fetus Heart Rate Present Fetus Movement Comments Flowsheet Date 03/29/2022 Soto Score Blood Edema Fundus Height Fundus Units Glucose Ketones Leukocytes Nitrite Labor Signs Protein Cervic Dilation Cervic Effacement Cervic Station 34 Type Weight in lbs Pre/Post Dialysis Refused Weight 269.822957777434 BP Diastolic BP Location Tested BP Systolic BP Type 87 R arm 134 sitting Fetus Heart Rate Present A 134 Fetus Movement Comments no complaints, no problems, thyroid testing today, resolution of LGA, Flowsheet Date 04/05/2022 Soto Score Blood Edema Fundus Height Fundus Units Glucose Ketones Leukocytes Nitrite Labor Signs Protein Cervic Dilation Cervic Effacement Cervic Station Type Weight in lbs Pre/Post Dialysis Refused BP Diastolic BP Location Tested BP Systolic BP Type Fetus Heart Rate Present Fetus Movement Comments Flowsheet Date 04/05/2022 Soto Score Blood Edema Fundus Height Fundus Units Glucose Ketones Leukocytes Nitrite Labor Signs Protein Cervic Dilation Cervic Effacement Cervic Station Type Weight in lbs Pre/Post Dialysis Refused BP Diastolic BP Location Tested BP Systolic BP Type Fetus Heart Rate Present Fetus Movement Comments Flowsheet Date 04/05/2022 Soto Score Blood Edema Fundus Height Fundus Units Glucose Ketones Leukocytes Nitrite Labor Signs Protein Cervic Dilation Cervic Effacement Cervic Station 35 Type Weight in lbs Pre/Post Dialysis Refused Weight 269.701259012141 BP Diastolic BP Location Tested BP Systolic BP Type 86 R arm 122 sitting Fetus Heart Rate Present A 145 Fetus Movement A Yes Comments No complaints, reassuring BP P Flowsheet Date 04/11/2022 Soto Score Blood Edema Fundus Height Fundus Units Glucose Ketones Leukocytes Nitrite Labor Signs Protein Cervic Dilation Cervic Effacement Cervic Station neg none none trace 1cm 60% -2 Type Weight in lbs Pre/Post Dialysis Refused Weight 265.201361162228 BP Diastolic BP Location Tested BP Systolic BP Type 91 138 81 137 Fetus Heart Rate Present Fetus Movement A Yes Comments patient is having pain and c ontractions. reviewed / labor precautions, pih labs today. denies naik, visual changes, epigastric painNST and US prior to appt at [facility] all wnlgbs done Flowsheet Date 04/19/2022 Soto Score Blood Edema Fundus Height Fundus Units Glucose Ketones Leukocytes Nitrite Labor Signs Protein Cervic Dilation Cervic Effacement Cervic Station Type Weight in lbs Pre/Post Dialysis Refused BP Diastolic BP Location Tested BP Systolic BP Type Fetus Heart Rate Present Fetus Movement Comments Flowsheet Date 04/19/2022 Soto Score Blood Edema Fundus Height Fundus Units Glucose Ketones Leukocytes Nitrite Labor Signs Protein Cervic Dilation Cervic Effacement Cervic Station Type Weight in lbs Pre/Post Dialysis Refused BP Diastolic BP Location Tested BP Systolic BP Type Fetus Heart Rate Present Fetus Movement Comments Flowsheet Date 04/19/2022 Soto Score Blood Edema Fundus Height Fundus Units Glucose Ketones Leukocytes Nitrite Labor Signs Protein Cervic Dilation Cervic Effacement Cervic Station 37 1cm Type Weight in lbs Pre/Post Dialysis Refused Weight 270.57995189983 BP Diastolic BP Location Tested BP Systolic BP Type 87 R arm 138 sitting Fetus Heart Rate Present A 145 Fetus Movement Comments This patient is a 41-year-ol d 1 at 39 weeks gestation presents for follow-up care. She checked her cervix. It was 1 cm. This was external low. She has no complaints. Flowsheet Date 04/26/2022 Soto Score Blood Edema Fundus Height Fundus Units Glucose Ketones Leukocytes Nitrite Labor Signs Protein Cervic Dilation Cervic Effacement Cervic Station Type Weight in lbs Pre/Post Dialysis Refused BP Diastolic BP Location Tested BP Systolic BP Type Fetus Heart Rate Present Fetus Movement Comments Flowsheet Date 04/26/2022 Soto Score Blood Edema Fundus Height Fundus Units Glucose Ketones Leukocytes Nitrite Labor Signs Protein Cervic Dilation Cervic Effacement Cervic Station Type Weight in lbs Pre/Post Dialysis Refused BP Diastolic BP Location Tested BP Systolic BP Type Fetus Heart Rate Present Fetus Movement Comments Flowsheet Date 04/26/2022 Soto Score Blood Edema Fundus Height Fundus Units Glucose Ketones Leukocytes Nitrite Labor Signs Protein Cervic Dilation Cervic Effacement Cervic Station 37 Type Weight in lbs Pre/Post Dialysis Refused Weight 270.63559142584 BP Diastolic BP Location Tested BP Systolic BP Type 88 R arm 139 sitting Fetus Heart Rate Present A 136 Fetus Movement A Yes Comments Borderline low JAMES, consider ing induction, going to contact us to schedule. Flowsheet Date 05/28/2022 Soto Score Blood Edema Fundus Height Fundus Units Glucose Ketones Leukocytes Nitrite Labor Signs Protein Cervic Dilation Cervic Effacement Cervic Station Type Weight in lbs Pre/Post Dialysis Refused Weight 251.60887192264 BP Diastolic BP Location Tested BP Systolic BP Type 81 R arm 133 sitting Fetus Heart Rate Present Fetus Movement Comments Flowsheet Date 06/28/2022 Soto Score Blood Edema Fundus Height Fundus Units Glucose Ketones Leukocytes Nitrite Labor Signs Protein Cervic Dilation Cervic Effacement Cervic Station Type Weight in lbs Pre/Post Dialysis Refused BP Diastolic BP Location Tested BP Systolic BP Type Fetus Heart Rate Present Fetus Movement Comments Menstrual History Last Menstrual Date Menses Monthly On Bcp Conception Prior Menses Frequency Hcg Plus Date Menarche Onset Age 0407/28/2021 Genetic Screening And Infection History Question Response Note Mental Retardation/Autism false Patient's Age Will Be 35 Yea rs Or Older At Estimated Date of Delivery false Thalassemia (Greek, Norwegian, Mediterranean, Or Background): MCV < 80 false Neural Tube Defect (Meningom yelocele, Spina Bifida, Or Anencephaly) false Congenital Heart Defect false Down Syndrome false Aquilino-Sachs (eg, Yarsanism, Cajun, Scottish-[place]) f alse Isabelle Disease false Sickle Cell Disease Or Trait () false Hemophilia Or Other Blood Disorders false Muscular Dystrophy false Cystic Fibrosis false Cabell's Chorea false Intellectual Disability/Autism false If Yes, Was Person Tested For Fragile X? false Other Inherited Genetic Or Chromosomal Disorder false Maternal Metabolic Disorder (eg, Type 1 Diabetes, PKU) false Patient Or Baby's Father Had A Child With Defects Not Listed Above false Recurrent Loss, Or A Stillbirth false Medications (including Suppl ements, Vitamins, Herbs, OTC Drugs), Illicit/Recreational Drugs, Alcohol false If Yes, Agent(s) And Strength/Dosage false Any Other Genetic History false Live With Someone With TB Or Exposed To TB false Patient Or Partner Has History Of Genital Herpes false Rash Or Viral Illness Since Last Menstrual Period false History Of STD, Gonorrhea, C hlamydia, HPV, Syphilis false h/o chlamydia, abnormal Pap Other Infection History false History of HIV false History of Hepatitis false Prior GBS-infected child false Hemoglobinopathy Or Carrier false Other Structural Defect false Recent Travel History Outside of Country false Delivery Information Delivery Date Delivery Type Labor Anesthesia Weeks Gestation Incision Type Labor Labor Length Hrs Delivered By Post Complications Tubal Sterilization Discharge Date Comments 3 Induce d None 39.3 false Bing Andrews MD AMA, hyperthyr oid, ivf, precip delivery Discharge Information Feeding Method Contraceptive Method Maternal HG B and HCT Levels Ob Episode Information Episode Created Date Number of Fetuses Patient Bloodtype Patient rh Status Prepregnancy Weight lbs Domestic Partner Domestic Partner Phone Father Name [employer] Supervisor Status 06/10/19 25 1 A Positive 276 Dereje CLOSED Fetus Data First Name Last Name Admitted to NICU Weight (g) Sex Living Outcome Pediatric Complications Fetus ID Race Codes Race Delivery Type 3005.04 7 F true Full Term [id number] Vaginal Delivery Problems Problem Notes persistent back pain urine c x - if persistent conider renal us Problem Name Start Date End Date Resolution Snomed Code Not e Antibody screen 920826515 nons pecific antibody, needs observation, history of transfusion er pt card she carries around + Antibody Mper [facility] repeat monthly titers Alpha thalassemia 13002150 + carrier - (This pt had egg donor ) Graves' disease 369800190 no t x right nowlabs wnlSSM MFM 10/13 Level II US & Office visit 10:30 MFM faxed TSH labs to hospice manager - no medication indicated at this time RPT TSH 4wks delivery 39-39.6wks Advanced maternal age 916196516 AMA .40 antenat al testing weekly @36wks Bilobate placenta 08/12/2024 6202925718 serial growth In vitro fertilization 09/07/2024 65069377 to get echo, w ith egg donor age 32 and spouse sperm Body mass index 30+ - obesity 082263134 37 week antenat al testing Anemia of 10/29/2024 81660060 weekly Fe infusions starting at 33 weeks faxed Infusion order 11/04 3 doses received by 11/26 pending last dose Dmitriy Calculation Initial Dmitriy Date Initial Exam Date Initial Exam Provider Initial Ultrasound Date Last Menstrual Period Date Ultra Sound Weeks Gestation 06/10/2024 05/21/2024 03/04/2024 9 Eighteen To Twenty Week Dmitriy Update Ultra Sound Date Fundal Height At Umbil Quickening Date Ultra Sound Latest Weeks Gestation Final Dmitriy Confirmed By Final Dmitriy Confirmed Date Final Dmitriy Date Ultra Sound Latest Days Gestation 0 [email or web address] 06/10/2024 12/20/19 25 0 Pre- Flowsheet Flowsheet Date 06/10/2024 Soto Score Blood Edema Fundus Height Fundus Units Glucose Ketones Leukocytes Nitrite Labor Signs Protein Cervic Dilation Cervic Effacement Cervic Station Type Weight in lbs Pre/Post Dialysis Refused Weight 279.461293902505 BP Diastolic BP Location Tested BP Systolic BP Type 85 L arm 139 sitting Fetus Heart Rate Present Fetus Movement A No Comments this patient is a 43-year-ol d multiparous female at 12 weeks' gestation who presents for initial care. She has a history of term vaginal births and graves Ds.. Her medical, surgical, obstetric history is unremarkable otherwise. She is vaccinated. She was given precautions recommendations for . We talked about vaccines in . Talked about care in detail. She is having genetic testing. She had a normal 12 week ultrasound. To begin routine care. Flowsheet Date 07/08/2024 Soto Score Blood Edema Fundus Height Fundus Units Glucose Ketones Leukocytes Nitrite Labor Signs Protein Cervic Dilation Cervic Effacement Cervic Station 3+ Type Weight in lbs Pre/Post Dialysis Refused 283.102186383214 BP Diastolic BP Location Tested BP Systolic BP Type 83 L arm 134 sitting Fetus Heart Rate Present A 145 Fetus Movement A Yes Comments no complaints, no problems, routine care, no contractions, no vaginal bleeding, no loss of fluid, no cramping Flowsheet Date 08/06/2024 Soto Score Blood Edema Fundus Height Fundus Units Glucose Ketones Leukocytes Nitrite Labor Signs Protein Cervic Dilation Cervic Effacement Cervic Station Type Weight in lbs Pre/Post Dialysis Refused BP Diastolic BP Location Tested BP Systolic BP Type Fetus Heart Rate Present Fetus Movement Comments Flowsheet Date 08/06/2024 Soto Score Blood Edema Fundus Height Fundus Units Glucose Ketones Leukocytes Nitrite Labor Signs Protein Cervic Dilation Cervic Effacement Cervic Station Type Weight in lbs Pre/Post Dialysis Refused 286.160924258888 BP Diastolic BP Location Tested BP Systolic BP Type 81 L arm 132 sitting Fetus Heart Rate Present A 148 Fetus Movement A Yes Comments no complaints, no problems, routine care, no contractions, no vaginal bleeding, no loss of fluid, no cramping Flowsheet Date 09/07/2024 Soto Score Blood Edema Fundus Height Fundus Units Glucose Ketones Leukocytes Nitrite Labor Signs Protein Cervic Dilation Cervic Effacement Cervic Station Type Weight in lbs Pre/Post Dialysis Refused BP Diastolic BP Location Tested BP Systolic BP Type Fetus Heart Rate Present Fetus Movement Comments Flowsheet Date 09/07/2024 Soto Score Blood Edema Fundus Height Fundus Units Glucose Ketones Leukocytes Nitrite Labor Signs Protein Cervic Dilation Cervic Effacement Cervic Station Type Weight in lbs Pre/Post Dialysis Refused 291.121340745932 BP Diastolic BP Location Tested BP Systolic BP Type 80 L arm 127 sitting Fetus Heart Rate Present A 144 Fetus Movement A Yes Comments to get echo, normal gr owth ultrasound, no complaints today, no complaints, no problems, routine care, no contractions, no vaginal bleeding, no loss of fluid, no cramping Flowsheet Date 10/06/2024 Soto Score Blood Edema Fundus Height Fundus Units Glucose Ketones Leukocytes Nitrite Labor Signs Protein Cervic Dilation Cervic Effacement Cervic Station Type Weight in lbs Pre/Post Dialysis Refused BP Diastolic BP Location Tested BP Systolic BP Type Fetus Heart Rate Present Fetus Movement Comments Flowsheet Date 10/06/2024 Soto Score Blood Edema Fundus Height Fundus Units Glucose Ketones Leukocytes Nitrite Labor Signs Protein Cervic Dilation Cervic Effacement Cervic Station Type Weight in lbs Pre/Post Dialysis Refused Weight 292.242423484940 BP Diastolic BP Location Tested BP Systolic BP Type 84 L arm 136 sitting Fetus Heart Rate Present Fetus Movement A Yes Comments Good movement. No cram ping or bleeding. EFW 67%, jerrod breech, arches normal. Scheduled for echo next week with [facility] for IVF . GCT and labs today. Discussed testing starting at 34 weeks for IVF/BMI/AMA. RTC 2 weeks. Flowsheet Date 10/22/2024 Soto Score Blood Edema Fundus Height Fundus Units Glucose Ketones Leukocytes Nitrite Labor Signs Protein Cervic Dilation Cervic Effacement Cervic Station Type Weight in lbs Pre/Post Dialysis Refused 294.704809404644 BP Diastolic BP Location Tested BP Systolic BP Type 82 L arm 134 sitting Fetus Heart Rate Present A 145 Fetus Movement A Yes Comments Good movement. No cram ping or bleeding. Saw MFM last week, had repeat thyroid studies done, all normal aside from elevated T3 (210). Also has ferritin deficiency, ferritin 11, TIBC 561, %sat 9%. Will start Fe infusions. Repeat TSH/T3/T4 in 3 weeks. RTC 1 weeks to start testing. Flowsheet Date 10/28/2024 Soto Score Blood Edema Fundus Height Fundus Units Glucose Ketones Leukocytes Nitrite Labor Signs Protein Cervic Dilation Cervic Effacement Cervic Station Type Weight in lbs Pre/Post Dialysis Refused BP Diastolic BP Location Tested BP Systolic BP Type Fetus Heart Rate Present Fetus Movement Comments Flowsheet Date 10/28/2024 Soto Score Blood Edema Fundus Height Fundus Units Glucose Ketones Leukocytes Nitrite Labor Signs Protein Cervic Dilation Cervic Effacement Cervic Station Type Weight in lbs Pre/Post Dialysis Refused BP Diastolic BP Location Tested BP Systolic BP Type Fetus Heart Rate Present Fetus Movement Comments Flowsheet Date 10/28/2024 Soto Score Blood Edema Fundus Height Fundus Units Glucose Ketones Leukocytes Nitrite Labor Signs Protein Cervic Dilation Cervic Effacement Cervic Station neg trace Type Weight in lbs Pre/Post Dialysis Refused Weight 295.032217495869 BP Diastolic BP Location Tested BP Systolic BP Type 82 L arm 139 sitting Fetus Heart Rate Present Fetus Movement A Yes Comments Good movement. No ctx, LOf, VB. BPP 10/10, breech presentation. Patient to start spinning babies and chiro adjustments to help turn baby. Needs Fe infusions scheduled due to ferritin deficiency and Fe deficiency anemia. Continue weekly testing. Considering EIL at 39 weeks. RTC 1 week. Flowsheet Date 11/04/2024 Soto Score Blood Edema Fundus Height Fundus Units Glucose Ketones Leukocytes Nitrite Labor Signs Protein Cervic Dilation Cervic Effacement Cervic Station Type Weight in lbs Pre/Post Dialysis Refused BP Diastolic BP Location Tested BP Systolic BP Type Fetus Heart Rate Present Fetus Movement Comments Flowsheet Date 11/04/2024 Soto Score Blood Edema Fundus Height Fundus Units Glucose Ketones Leukocytes Nitrite Labor Signs Protein Cervic Dilation Cervic Effacement Cervic Station Type Weight in lbs Pre/Post Dialysis Refused BP Diastolic BP Location Tested BP Systolic BP Type Fetus Heart Rate Present Fetus Movement Comments Flowsheet Date 11/04/2024 Soto Score Blood Edema Fundus Height Fundus Units Glucose Ketones Leukocytes Nitrite Labor Signs Protein Cervic Dilation Cervic Effacement Cervic Station neg none Type Weight in lbs Pre/Post Dialysis Refused Weight 296.810768768167 BP Diastolic BP Location Tested BP Systolic BP Type 87 L arm 135 sitting Fetus Heart Rate Present A Present Fetus Movement A Yes Comments Good movement. No cram ping or bleeding. BPP 10/10. Transverse lie. Considering permanent sterilization, does not want any future pregnancies. Discussed interval tubal vs tubal at time of c section. r/b/a discussed. Will continue to discuss. RTC 1 week. Flowsheet Date 11/11/2024 Soto Score Blood Edema Fundus Height Fundus Units Glucose Ketones Leukocytes Nitrite Labor Signs Protein Cervic Dilation Cervic Effacement Cervic Station Type Weight in lbs Pre/Post Dialysis Refused BP Diastolic BP Location Tested BP Systolic BP Type Fetus Heart Rate Present Fetus Movement Comments Flowsheet Date 11/11/2024 Soto Score Blood Edema Fundus Height Fundus Units Glucose Ketones Leukocytes Nitrite Labor Signs Protein Cervic Dilation Cervic Effacement Cervic Station Type Weight in lbs Pre/Post Dialysis Refused Weight 297.326138348003 BP Diastolic BP Location Tested BP Systolic BP Type 84 L arm 135 sitting Fetus Heart Rate Present Fetus Movement Comments Flowsheet Date 11/11/2024 Soto Score Blood Edema Fundus Height Fundus Units Glucose Ketones Leukocytes Nitrite Labor Signs Protein Cervic Dilation Cervic Effacement Cervic Station neg none Type Weight in lbs Pre/Post Dialysis Refused Weight 297.584431389366 BP Diastolic BP Location Tested BP Systolic BP Type 84 L arm 135 sitting Fetus Heart Rate Present A Present Fetus Movement A Yes Comments Good movement. No cram ping or bleeding. BPP 10/10. Transverse lie, working with chiro. Discussed ECV vs PCS, will decide at 36 weeks. Fe infusions starting tomorrow. Preadmission scheduled. RTC 1 week. Flowsheet Date 11/18/2024 Soto Score Blood Edema Fundus Height Fundus Units Glucose Ketones Leukocytes Nitrite Labor Signs Protein Cervic Dilation Cervic Effacement Cervic Station Type Weight in lbs Pre/Post Dialysis Refused BP Diastolic BP Location Tested BP Systolic BP Type Fetus Heart Rate Present Fetus Movement Comments Flowsheet Date 11/18/2024 Soto Score Blood Edema Fundus Height Fundus Units Glucose Ketones Leukocytes Nitrite Labor Signs Protein Cervic Dilation Cervic Effacement Cervic Station Type Weight in lbs Pre/Post Dialysis Refused BP Diastolic BP Location Tested BP Systolic BP Type Fetus Heart Rate Present Fetus Movement Comments Flowsheet Date 11/18/2024 Soto Score Blood Edema Fundus Height Fundus Units Glucose Ketones Leukocytes Nitrite Labor Signs Protein Cervic Dilation Cervic Effacement Cervic Station Type Weight in lbs Pre/Post Dialysis Refused Weight 300.324888669507 BP Diastolic BP Location Tested BP Systolic BP Type 78 L arm 119 sitting Fetus Heart Rate Present A 150 Fetus Movement A Yes Comments Doing well, good movem ent. Vertex! No cramping ro bleeding. Tolerating Fe infusions well. Discussed GBS for next visit. BPP 10. RTC 1 week. Flowsheet Date 11/25/2024 Soto Score Blood Edema Fundus Height Fundus Units Glucose Ketones Leukocytes Nitrite Labor Signs Protein Cervic Dilation Cervic Effacement Cervic Station Type Weight in lbs Pre/Post Dialysis Refused BP Diastolic BP Location Tested BP Systolic BP Type Fetus Heart Rate Present Fetus Movement Comments Flowsheet Date 11/25/2024 Soto Score Blood Edema Fundus Height Fundus Units Glucose Ketones Leukocytes Nitrite Labor Signs Protein Cervic Dilation Cervic Effacement Cervic Station Type Weight in lbs Pre/Post Dialysis Refused BP Diastolic BP Location Tested BP Systolic BP Type Fetus Heart Rate Present Fetus Movement Comments Flowsheet Date 11/25/2024 Soto Score Blood Edema Fundus Height Fundus Units Glucose Ketones Leukocytes Nitrite Labor Signs Protein Cervic Dilation Cervic Effacement Cervic Station Type Weight in lbs Pre/Post Dialysis Refused 303.192472186036 BP Diastolic BP Location Tested BP Systolic BP Type 83 L arm 133 sitting Fetus Heart Rate Present Fetus Movement A Yes Comments nst r, doing well +FM, gbs c ollected f/u one week Flowsheet Date 12/02/2024 Soto Score Blood Edema Fundus Height Fundus Units Glucose Ketones Leukocytes Nitrite Labor Signs Protein Cervic Dilation Cervic Effacement Cervic Station Type Weight in lbs Pre/Post Dialysis Refused BP Diastolic BP Location Tested BP Systolic BP Type Fetus Heart Rate Present Fetus Movement Comments Flowsheet Date 12/02/2024 Soto Score Blood Edema Fundus Height Fundus Units Glucose Ketones Leukocytes Nitrite Labor Signs Protein Cervic Dilation Cervic Effacement Cervic Station Type Weight in lbs Pre/Post Dialysis Refused BP Diastolic BP Location Tested BP Systolic BP Type Fetus Heart Rate Present Fetus Movement Comments Flowsheet Date 12/02/2024 Soto Score Blood Edema Fundus Height Fundus Units Glucose Ketones Leukocytes Nitrite Labor Signs Protein Cervic Dilation Cervic Effacement Cervic Station Type Weight in lbs Pre/Post Dialysis Refused 299.4873482903 BP Diastolic BP Location Tested BP Systolic BP Type 85 L arm 138 sitting Fetus Heart Rate Present A 145 Fetus Movement A Yes Comments transverse lie today, to see chiropractor tomorrow. To return next week and consider external cephalic version. Unstable lie, uncertain of the effectiveness of a version at this time. Flowsheet Date 12/09/2024 Soto Score Blood Edema Fundus Height Fundus Units Glucose Ketones Leukocytes Nitrite Labor Signs Protein Cervic Dilation Cervic Effacement Cervic Station Type Weight in lbs Pre/Post Dialysis Refused BP Diastolic BP Location Tested BP Systolic BP Type Fetus Heart Rate Present Fetus Movement Comments Flowsheet Date 12/09/2024 Soto Score Blood Edema Fundus Height Fundus Units Glucose Ketones Leukocytes Nitrite Labor Signs Protein Cervic Dilation Cervic Effacement Cervic Station Type Weight in lbs Pre/Post Dialysis Refused BP Diastolic BP Location Tested BP Systolic BP Type Fetus Heart Rate Present Fetus Movement Comments Flowsheet Date 12/09/2024 Soto Score Blood Edema Fundus Height Fundus Units Glucose Ketones Leukocytes Nitrite Labor Signs Protein Cervic Dilation Cervic Effacement Cervic Station 50% -3 Type Weight in lbs Pre/Post Dialysis Refused Weight 302.852862635413 BP Diastolic BP Location Tested BP Systolic BP Type 88 L arm 138 sitting Fetus Heart Rate Present A 145 Fetus Movement A Yes Comments no complaints, no problems, routine care, no contractions, no vaginal bleeding, no loss of fluid, no cramping Flowsheet Date 12/16/2024 Soto Score Blood Edema Fundus Height Fundus Units Glucose Ketones Leukocytes Nitrite Labor Signs Protein Cervic Dilation Cervic Effacement Cervic Station Type Weight in lbs Pre/Post Dialysis Refused BP Diastolic BP Location Tested BP Systolic BP Type Fetus Heart Rate Present Fetus Movement Comments Flowsheet Date 12/16/2024 Soto Score Blood Edema Fundus Height Fundus Units Glucose Ketones Leukocytes Nitrite Labor Signs Protein Cervic Dilation Cervic Effacement Cervic Station Type Weight in lbs Pre/Post Dialysis Refused BP Diastolic BP Location Tested BP Systolic BP Type Fetus Heart Rate Present Fetus Movement Comments Flowsheet Date 12/16/2024 Soto Score Blood Edema Fundus Height Fundus Units Glucose Ketones Leukocytes Nitrite Labor Signs Protein Cervic Dilation Cervic Effacement Cervic Station Type Weight in lbs Pre/Post Dialysis Refused 301.697894611995 BP Diastolic BP Location Tested BP Systolic BP Type 88 L arm 134 sitting Fetus Heart Rate Present A Present Fetus Movement A Yes Comments Doing well, no issues. Verte x! EIL scheduled Saturday. No cramping or bleeding. Labor precautions reviewed. Flowsheet Date 12/18/2024 Stoo Score Blood Edema Fundus Height Fundus Units Glucose Ketones Leukocytes Nitrite Labor Signs Protein Cervic Dilation Cervic Effacement Cervic Station Type Weight in lbs Pre/Post Dialysis Refused BP Diastolic BP Location Tested BP Systolic BP Type Fetus Heart Rate Present Fetus Movement Comments Menstrual History Last Menstrual Date Menses Monthly On Bcp Conception Prior Menses Frequency Hcg Plus Date Menarche Onset Age 1103/04/2024 Delivery Information Delivery Date Delivery Type Labor Anesthesia Weeks Gestation Incision Type Labor Labor Length Hrs Delivered By Post Complications Tubal Sterilization Discharge Date Comments 5 39.6 Discharge Information Feeding Method Contraceptive Method Maternal HG B and HCT Levels
--- OUTSIDE RECORDS SUMMARY | 2025-02-02 00:51 | XMS_ITS | Clinical Summary ---
Author Organization [facility] [employer] Address [address] [place] [address] Care Team Providers Care Wildlife Removal Specialist Name Role Phone Unavailable Primary Care Provider Unavailabl e Source Comments [facility],non-owned Affiliates and Associated Physician Practices is amultiple site organization consisting of ambulatory clinics and hospital sitesin [place], [place], [place] and [place]. This disclosure is being madepursuant to the Care Everywhere program and may not contain all information available regarding this patient. Last updated 18.[facility] [employer] Allergies Active Allergy Reactions Criticality Noted Date [...] aspirin EC (Ecotrin) 81 MG tablet Take 1 (one) tablet by mouth once daily Active vitamin D3 (Cholecalciferol ) 25 MCG (1000 UNITS) tablet Take 1 (one) tablet by mouth once daily Active Active Problems Problem Noted Date Diagnosed Date AMA (advanced maternal age) multigravida 35+ Graves disease 02/06/2022 In vitro fertilization 02/06/2022 Class 2 obesity due to exces s calories with body mass index (BMI) of 36.0 to 36.9 in adult 02/06/2022 Estimated Date of Delivery Comme nts Yes 12/20/2024 Based on Embryo Transfer Encounters Date Type Department Care Team Description 11/09/2024 Telephone [facility] [address] [place] [address] [phone] Ana Noel, RN Update (Patient returned call and reports her D[employer]ified Crops Supervisor is Dr. Lucas. Will forward recent thyroid labs as requested by [facility]. ) 11/04/2024 Telephone [facility] [address] [place] [address] [phone] Ana Noel, RN Update (Norma from Dr. Woodward's office called back regarding patient update I left message about. ) 11/04/2024 Telephone [facility] [address] [place] [address] [phone] Ana Noel, RN Update (Call to give OB office update on patient labs and recommendations from [facility]. ) 11/04/2024 Telephone [facility] [address] [place] [address] [phone] Ana Noel, RN Results (Called patient and LM regarding lab results from 10/17/24.) 11/03/2024 Orders Only [facility] [address] [place] [address] [phone] Ana Noel, RN from Last 3 Months Immunizations Immunization Administration Dates Next Due TD [...] = 0.6 oz pur e alcohol) occ Estimated Date of Delivery Comme nts Yes 12/20/2024 Based on Embryo Transfer Sex and Gender Information Value Date Recorded Sex Assigned at Not on file Legal Sex Female 2:43 PM CDT Gender Identity Not on file Sexual Orientation Not on file Last Filed Vital Signs Vital Sign Reading Time Taken Comments Blood Pressure 132/82 10/13/2024 11:39 AM CDT Pulse 88 10/13/2024 11:39 AM CDT Temperature - - Respiratory Rate - - Oxygen Saturation 99% 03/14/2022 9:41 AM ENVIRONMENTAL SERVICES MANAGER Inhaled Oxygen Concentration - - Weight 132.7 kg (292 lb 9.6 oz) 025 11:39 AM CDT Height 177.8 cm (5' 10) 10/13/2024 11: 39 AM CDT Body Mass Index 41.98 10/13/2024 11:39 AM CDT Plan of Treatment Health Maintenance Due Date Last Done Comments COLOGUARD (AGES 45-75) - COLON CA SCREENING 1979 COLON MONITORING 1979 COLONOSCOPY - COLON CA SCREENING 1979 CT COLONOGRAPHY - COLON CA SCREENING 1979 Colorectal Cancer Screening 1979 FIT - COLON CA SCREENING 1979 FLEX SIG - COLON CA SCREENING 1979 LIPID TESTING 1979 MAMMOGRAM 1979 HEPATITIS C SCREENING 07/22/1997 HEPATITIS B VACCINE (1 of 3 - 19+ 3-dose series) 07/26/1998 HPV VACCINE (1 - 3-dose SCDM series) 07/26/2006 SCREENING FOR DIABETES 08/16/2023 DEPRESSION SCREENING 04/22/2024 OB-TDAP CURRENT 09/20/2024 OB-RHOGAM INJECTION 09/27/2024 OB-GROUP B STREP SCREEN 11/15/2024 COVID-19 VACCINE (2 - 2024- season) 2024 10/29/2020 INFLUENZA VACCINE (#1) 2024 PAP SMEAR 12/01/2026 12/02/2023, 11/20, 09/26/2021, Additional history exists ZOSTER VACCINE (1 of 2) 07/26/2029 DTAP/TDAP/TD VACCINES (2 - Td or Tdap) 05/24/2030 05/24/2020 HIV SCREENING Completed 10/06/2024, 11/20, 10/18/2021 OB-ONE HOUR GLUCOSE Completed 10/06/2024, 2 HIB VACCINE Aged Out No longer eligi ble based on patient's age to complete this topic MENINGOCOCCAL (Group B) VACCINE SHARED DECISION-MAKING Aged Out No longer eligible based on patient's age to complete this topic MENINGOCOCCAL GROUPS A/C/Y/W VACCINE Aged Out No longer eligible based on patient's age to complete this topic PNEUMOCOCCAL VACCINE Aged Out No long er eligible based on patient's age to complete this topic Respiratory Syncytial Virus (RSV) Vaccine Pt: or over 60 yrs (No Doses Required) Completed Insurance [facility]
[2025-02-02] MEDS: ACETAMINOPHEN 500 MG TABLET 1000 MG PO (08:50)
[2025-02-02] MEDS: LACTATED RINGERS 1,000 ML 30 ML IV CONT ×2 (08:50→11:50)
[2025-02-02] MEDS: KETOROLAC 15 MG/ML VIAL (*BKC) IV PUSH (08:55)
[2025-02-02 09:13] LABS: BEDSIDEPREGUCG Negative (Negative)
--- NOTE | 2025-02-02 10:14 | PM.IMHP ---
H&P: HPI History of Present Illness Date/Time: 02/02/25 10:14 Chief Complaint: Unwanted fertility Narrative: This patient is 44-year-old female with unwanted fertility. We have agreed to perform laparoscopic bilateral salpingectomy. She understands risks, benefits, and alternatives. She has completed informed consent process is ready to proceed. The patient understands the details of the procedure. The procedure has been explained in detail. She understands the risks. She understands that injuries may occur that result in hospitalization, more surgery, and severe illness. She understands risk of hemorrhage and infection. She denies any chest pain or shortness of breath. She denies any nausea, vomiting, fever, chills. Review of Systems Review of Systems: All systems reviewed & are unremarkable except as noted in HPI and below Constitutional: Constitutional: Denies chills, Denies fatigue, Denies fever(s) and Denies weakness Eyes: Eyes: Denies blurry vision, Denies change in vision, Denies loss of peripheral vision, Denies loss of vision, Denies other visual disturbances and Denies eye pain ENT: Denies vertigo, Denies dizziness, Denies hearing loss, Denies mouth pain, Denies nasal obstruction, Denies neck mass and Denies neck pain Cardiovascular: Cardiovascular: Denies chest pain, Denies diaphoresis, Denies syncope, Denies leg edema and Denies dyspnea Respiratory: Respiratory: Denies chest congestion, Denies cough, Denies hemoptysis, Denies dyspnea and Denies wheezing Gastrointestinal: Gastrointestinal: Denies abdominal pain, Denies constipation, Denies diarrhea, Denies nausea and Denies vomiting Genitourinary: Genitourinary: Denies hematuria, Denies change in libido, Denies nocturia, Denies genital lesions, Denies flank pain and Denies urinary urgency Musculoskeletal: Musculoskeletal: Denies abnormal gait, Denies back pain, Denies myalgias, Denies arthralgias, Denies joint swelling, Denies muscle weakness and Denies neck pain Integumentary/Breasts: Skin/Breast: Denies swelling, Denies breast pain, Denies breast mass, Denies dry skin, Denies nipple discharge, Denies unusual bruising and Denies jaundice Neurologic: Denies Neuro-related abnormal movements, Denies Abnormal speech present, Denies abnormal gait, Denies behavioral changes, Denies confusion, Denies vertigo, Denies dizziness, Denies syncope, Denies loss of vision, Denies memory loss, Denies convulsions and Denies weakness Psychiatric: Psychiatric: Denies abnormal sleep pattern, Denies behavioral changes, Denies change in libido, Denies confusion, Denies depression, Denies anhedonia and Denies memory loss Endocrine: Endocrine: Reports no additional endocrine complaints, Denies change in libido and Denies fatigue Hematologic/Lymphatic: Hematologic/Lymphatic: Reports no additional hematologic/lymphatic complaints Allergic/Immunologic: Allergic/Immunologic: Reports no additional allergic/immunologic complaints and Denies wheezing [facility] Past Medical History Medical History Thyroid disease Surgical History Surgical History History of cryosurgery History of tonsillectomy Family History Family History Father Hypertension Mother Hypertension Asthma Thyroid disease Sibling Hypertension Grandparent Diabetes mellitus Thyroid disease Grandparent Cerebrovascular accident COPD (chronic obstructive pulmonary disease) Social History Social History Smoking status: Never smoker Second hand tobacco smoke exposure: No Alcohol intake: current Substance use: never Substance use type: does not use Do You Feel Safe in your Home?: Yes Lack of Transportation: No Lack of Food: Never True Current Housing: I Have Housing Concerned About Future Housing: No Difficulty Paying Gas/Electric Bills: No Difficulty Paying for Meds: No Currently Unemployed: No Education: Master's Degree or Higher Difficulty w/ Childcare or Family Care: No Living arrangements: with family Occupation/Education: occupation Gender identity (if verbalized by the patient): Female Sexual Orientation (if Verbalized by the Patient): Straight or Heterosexual Spiritual care concerns: No Meds Home Medications and Allergies Home Medications ?Medication ?Instructions ?Recorded ?Confirmed ?Type prenat.vits,mana,ans-xape-hdslg 1 tablet PO DAILY 04/06/22 02/02/25 History cholecalciferol (vitamin D3) 1,250 1,250 mcg PO WEEKLY #14 tabs 01/08/24 02/02/25 Rx mcg (50,000 unit) tablet Allergies Allergy/AdvReac Type Severity Reaction Status Date / Time sesame oil Allergy Severe Swelling Verified 02/02/25 09:08 of Lip/Tongue/Throat Penicillins Allergy Unknown vomitting,h Verified 02/02/25 09:08 ngoc cefaclor (From [facility]) AdvReac Severe Swelling Verified 02/02/25 09:08 of Lip/Tongue/Throat,hives Vital Signs Vital Signs - 24 hr 02/02/25 08:40 Temperature 97.0 F L Pulse Rate 68 Respiratory Rate 16 Blood Pressure 160/88 H Pulse Oximetry 100 Oxygen Delivery Room Air Exam Const: General: cooperative, healthy appearing, comfortable and no acute distress Orientation/consciousness: oriented to person, oriented to place and oriented to time HENMT: Head: normal to inspection Ears: external ears normal Face/Nose/Sinus: Normal external nose present and normal facial exam Face and sinus: normal facial exam Eyes: General: appearance normal, both eyes and all related structures Neck: Neck: normal visual inspection, trachea midline and supple Resp: Auscultation: clear to auscultation bilaterally, no crackles, no rales, no rhonchi and no wheezes Cardio: Rate: regular rate Rhythm: regular rhythm Heart sounds: no click, no murmurs and no rubs GI: GI Palp: No abdominal tenderness, No Soft to palpation, No Tenderness to palpation present (GI) and No Palpable mass present Auscultation: normal bowel sounds Skin: General skin exam: normal color and no rashes or lesions noted Neuro: General: oriented to person, oriented to place and oriented to time Extrem: General: normal to inspection, no joint enlargement, no clubbing, cyanosis or edema, no pedal edema and no calf tenderness Psych: Appearance: grossly normal Mental Status: mental status grossly normal Speech and movement: Normal speech and movement present Assessment and Plan Assessment and plan (1) Unwanted fertility: Code(s): Z30.09 - Encounter for other general counseling and advice on contraception Status: Acute Plan This patient is 44-year-old female with unwanted fertility. We have agreed to perform laparoscopic bilateral salpingectomy. She understands risks, benefits, and alternatives. She has completed informed consent process is ready to proceed.
--- NOTE | 2025-02-02 10:16 | WPDHPUPDATE1 ---
History and Physical Update Update Date/Time: 02/02/25 10:16 History and Physical has been reviewed, including an updated exam of the patient. There are NO changes in the patient's condition. Risks, benefits, and alternatives have been discussed and questions answered. Patient agrees to proceed with procedure.
--- NOTE | 2025-02-02 10:30 | WPDANESEPPF ---
Anes - Initial Pre Proc Eval Procedure: Operation Date: 02/02/25 10:30 Proposed Procedures p Laparoscopic Bilateral Salpingectomy - Andrews Smart MD Date/Time: 02/02/25 10:30 Surgeon: Andrews Smart MD Pre Op Diagnosis: desires sterilization Patient Data Age: 44 Gender: F Height: 1.78 m Weight: 128.2 kg Last Vital Signs Temp 36.1 C L 02/02/25 08:40 Pulse 68 02/02/25 08:40 Resp 16 02/02/25 08:40 BP 160/88 H 02/02/25 08:40 Pulse Ox 100 02/02/25 08:40 O2 Del Method Room Air 02/02/25 08:40 Allergies Allergy/AdvReac Type Severity Reaction Status Date / Time sesame oil Allergy Severe Swelling Verified 02/02/25 09:08 of Lip/Tongue/Throat Penicillins Allergy Unknown vomitting,h Verified 02/02/25 09:08 [facility] AdvReac Severe Swelling Verified 02/02/25 09:08 of Lip/Tongue/Throat,hives Home Medications ?Medication ?Instructions ?Recorded ?Confirmed ?Type prenat.vits,mana,oxq-wbpz-ttbca 1 tablet PO DAILY 04/06/22 02/02/25 History cholecalciferol (vitamin D3) 1,250 1,250 mcg PO WEEKLY #14 tabs 01/08/24 02/02/25 Rx mcg (50,000 unit) tablet Laboratory Tests 02/02/25 09:10 POC Urine HCG, Qual Negative (Negative) Patient hx anesthesia problems: none Family hx anesthesia problems: none Results Review: All pre-operative results and documents have been reviewed as part of the pre-operative evaluation. [facility] Past Medical History Medical History Thyroid disease Surgical History Surgical History History of cryosurgery History of tonsillectomy Family History Family History Father Hypertension Mother Hypertension Asthma Thyroid disease Sibling Hypertension Grandparent Diabetes mellitus Thyroid disease Grandparent Cerebrovascular accident COPD (chronic obstructive pulmonary disease) Social History Social History Smoking status: Never smoker Second hand tobacco smoke exposure: No Alcohol intake: current Substance use: never Substance use type: does not use Do You Feel Safe in your Home?: Yes Lack of Transportation: No Lack of Food: Never True Current Housing: I Have Housing Concerned About Future Housing: No Difficulty Paying Gas/Electric Bills: No Difficulty Paying for Meds: No Currently Unemployed: No Education: Master's Degree or Higher Difficulty w/ Childcare or Family Care: No Living arrangements: with family Occupation/Education: occupation Gender identity (if verbalized by the patient): Female Sexual Orientation (if Verbalized by the Patient): Straight or Heterosexual Spiritual care concerns: No Anes - Eval Final PreProcedure Day of Procedure 02/02/25 10:30 Patient weight: morbidly obese Heart: regular rate and rhythm Lungs: clear to auscultation Airway: Mallampati scale class II Neurological: alert and oriented Last oral intake: >/= 8 hours ASA classification: III Emergent: no Anesthetic plan: proceed Anesthesia type and monitoring: general ETT and standard monitoring Results Review: All pre-operative results and documents have been reviewed as part of the pre-operative evaluation. Informed Consent: The patient's anesthetic plan and its attendant risks and benefits were discussed with the patient/family/POA. Questions were solicited and answers provided to the satisfaction of the patient/family/POA.
[2025-02-02] MEDS: SCOPOLAMINE 1 MG PATCH 1 PATCH TRANSDERM (10:35)
--- NOTE | 2025-02-02 11:04 | S_PTH ---
PATIENT: Javier Garcia LOC: [facility] U#:[id number] AGE/SX: 44/F ROOM: RE02/02/[address]: Andrews Smart MD : 1980 BED: DIS: 02/02/2025 SPEC #: [id number] RECD: 02/02/25 11:45 STATUS: RAMYA REQ #: [id number] SANDEEP: 02/02/25 11:[address]: Andrews Smart DEPT: [facility] Surgical RECD BY: Stepan Angel ENTERED: 02/02/25 11:46 SP TYPE: Surgical OTHR DR: BUFFER [employer] PHYSICIAN Tissues: A - Fallopian Tube Bilateral Procedures: Gross and Microscopic Level 2 Hematoxylin and Eosin Stain
--- NOTE | 2025-02-02 11:22 | P.OP_ITS ---
Procedure Note - Detailed Date of Procedure 02/02/25 Pre-op Diagnosis desires sterilization Post-op Diagnosis Same Procedure Performed Laparoscopic bilateral salpingectomy Surgeon Andrews Smart MD Anesthesia General Indications Unwanted fertility Findings Normal pelvic anatomy Description of Procedure The patient was taken the operating room. She was prepped and draped in the dorsal lithotomy position after induction of general anesthesia. A 5 mm skin incision was made in the left upper quadrant of the abdominal skin. A 5 mm trocar was inserted the intra-abdominal cavity under direct visualization of the scope. Pneumoperitoneum was achieved. A 5 mm trocar was inserted in the left lower quadrant identical fashion. A 5 mm infraumbilical trocar was inserted in identical fashion as well. The bilateral fallopian tubes were removed. This was done by using a LigaSure cautery. The mesosalpinx adjacent to the tube was cauterized transected with LigaSure. This was initiated in the area the ovary and in a stepwise fashion moved medially to the area of the cornu of the uterus. Once there the fallopian tube was cauterized and transected. This was done in identical fashion on each side. The fallopian tubes were taken out through the left lower quadrant trocar site. The pneumoperitoneum was reduced. The trocars removed. The skin was closed with subcuticular 4 Monocryl and covered with D ermabond. She was taken to cover stable condition. Sponge lap and needle counts were correct x2. Estimated Blood Loss 5 Drains No Packing No Pathology Yes Complications No immediate complications Condition Stable Disposition PACU
[2025-02-02] MEDS: fentaNYL CITRATE INJ (*CRX) 100 MCG/2 ML VIAL 25 MCG IV PUSH (12:03)
[2025-02-02] MEDS: ONDANSETRON INJ 4 MG/2 ML VIAL IV PUSH (12:03)
[2025-02-02] MEDS: oxyCODONE HCL (*CRX) 5 MG TAB IR PO (12:38)
== END 2025-02-02 13:40 | disposition home or self-care (01) ==
PROVIDERS: Visit Provider Obstetrics & Gynecology
PROC: (CPT 49320; principal; 2025-02-02 10:30)
DX: Z30.2 Encounter for sterilization (principal); G89.18 Other acute postprocedural pain; E07.9 Disorder of thyroid, unspecified; E66.01 Morbid (severe) obesity due to excess calories; Z68.41 Body mass index [BMI] 40.0-44.9, adult; Z98.890 Other specified postprocedural states
CPT/HCPCS: 58661; 88302; A9270; J1100; J1200; J1885; J2003; J2250; J2405; J2704; J3010; J7030; J7120